=== PATIENT | male | born 1935 | race Caucasian/White ===

== ENCOUNTER → 2023-08-15 08:05 | Outpatient (REF) | payer MEDICARE, BC, SELFPAY | LOC: WOUND 08:05 | PROVIDERS: ATTENDING PHYSICIAN Surgery | DX: I87.312 Chronic venous hypertension (idiopathic) with ulcer of left lower extremity (principal); L97.822 Non-pressure chronic ulcer of other part of left lower leg with fat layer exposed; L97.222 Non-pressure chronic ulcer of left calf with fat layer exposed; L97.322 Non-pressure chronic ulcer of left ankle with fat layer exposed; L88 Pyoderma gangrenosum | CPT/HCPCS: 99214 ==

== ENCOUNTER 2023-10-20 21:34 | Inpatient (IN) | payer MEDICARE, BC, SELFPAY ==
[2023-10-20 16:33] VITALS: BP 146/61
--- NOTE | 2023-10-20 18:55 | ED.GENMED ---
History of Present Illness
General
Chief Complaint: Skin Problem
Time Seen by Provider: 10/20/23 18:32
History of Present Illness
History of Present Illness:
87-year-old male with history of bilateral lower extremity venous insufficiency presents to the emergency department for evaluation of left lower extremity pain and increased malodorous discharge over the past several days. He has in-home wound
care and was last seen today by his visiting nurse who recommended he come to the emergency department due to increased malodorous discharge. He typically has no pain in his legs but is noted pain when walking over the past week. Denies any fevers
or chills. Prior wound cultures have grown Pseudomonas as well as MSSA, was admitted to this hospital last year for acute on chronic wound infection and treated with ciprofloxacin
Past History
Past History
ED Past Medical History: HTN, Hypercholesterolemia, Other and Other
ED Past Surgical History: Other (Hemicolectomy)
Social History
Tobacco: Non-smoker
Alcohol: None
Drug: None
Personal:
Living: with family
Review of Systems
Review of Systems
Allergies reviewed?: Yes
All Other Systems: ROS reviewed and negative except as documented in HPI and ROS
Phy Exam
Physical Exam
Physical Exam:
GEN: Well appearing, NAD, WDWN
HEENT: Oral mucosa moist, no scleral icterus
Cardiac: Regular rate
Lung: No respiratory distress, no tachypnea
MSK: No gross deformity or injuries
Skin: Good color, no pallor or jaundice. Right lower extremity chronic ulcerated wounds with no discharge and no erythema. Numerous chronic ulcerations to the left lower extremity below the knee with copious malodorous discharge particularly the
medial aspect of the left lower extremity. Dorsalis pedis pulses are strong by Doppler bilaterally
Neuro: AO x3, moves all extremities freely
Psych: Calm, cooperative
Course
Orders/Labs/Results
Orders:
Orders
10/20/23 18:53
CR Leg Tibia/fibula Left 2 Vw Urgent
Comment:
Reason For Exam: chronic wound, acute infection
10/20/23 19:00
CRP [C-Reactive Protein] Urgent
Complete Blood Count/With Diff Urgent
Comprehensive Metabolic Panel Urgent
Wound Culture [Wound/Abscess/Other Culture] Urgent
MARBELLA Source: Leg
Specimen Description: Left
Date Specimen was Collected: 10/20/23
Time Specimen was Collected: 18:55
10/20/23 19:29
Ciprofloxacin 200 mg/[id number] [Cipro 200 mg] 100 ml IV NOW
10/20/23 20:23
Vancomycin [Vancocin] 2,000 mg 0.9% Sodium Chloride 500 ml [Nss] 500 ml IV NOW
10/20/23 22:00
VANCOMYCIN Pharmacy to Dose [VANCOCIN Pharmacy to Dose] 1 each Pharmacy To Prepare [Call Pharmacy To Prepare] 0 ml IV PER PROTOCOL
Abnormal Lab Results
10/20/23
19:00
WBC 11.2 H 10^3/uL
(4.8-10.8)
RBC 3.80 L 10^6/uL
(4.70-6.10)
Hgb 11.3 L g/dL
(13.0-18.0)
Hct 32.5 L %
(39.0-52.0)
Abs Immat Gran (auto) 0.1 H 10^3/uL
(0-0.05)
Absolute Neuts (auto) 8.5 H 10^3/uL
(1.4-6.5)
Absolute Monos (auto) 1.1 H 10^3/uL
(0.1-0.6)
Neutrophils % 75.9 H %
(42.2-75.2)
Lymphocytes % 11.8 L %
(20.5-51.1)
Monocytes % 9.7 H %
(1.7-9.3)
Sodium 129 L mmol/L
(135-145)
Chloride 96 L mmol/L
(98-107)
BUN 21 H mg/dl
(9-20)
Glucose 117 H mg/dl
(70-99)
C-Reactive Protein 82.40 H mg/L
(0.0-10.00)
Albumin 3.4 L g/dl
(3.5-5.0)
10/20/23 19:00
10/20/23 19:00
Vital Signs
Initial and Last Documented VS:
Initial Vital Signs
Temp Pulse Resp BP Pulse Ox
98 F 75 18 146/61 98
10/20/23 16:33 10/20/23 16:33 10/20/23 16:33 10/20/23 16:33 10/20/23 16:33
Last Documented Vital Signs
Temp Pulse Resp BP Pulse Ox
98 F 75 18 138/58 98
10/20/23 16:33 10/20/23 16:33 10/20/23 16:33 10/20/23 19:06 10/20/23 19:46
MDM/Problems Addressed
MDM/Problems Addressed:
87-year-old male presents with acute on chronic lower extremity ulcerated wounds. I am concerned for potential developing osteomyelitis given the acute onset of pain and malodorous discharge plus markedly elevated CRP; Tib/Fib XR my by read shows
no clear evidence of osteolysis, will cover with broad-spectrum IV antibiotics and admit to the hospitalist service for further management
*Critical Care Note
Total Time (30-74mins, 75-104mins- exclusive of procedures): Not Applicable
ED Attending Note
-
Portions of this chart may have been created with voice recognition software.� Occasional wrong word or��sound alike� substitutions may have occurred due to the inherent limitations of voice recognition software.
Discharge Plan
Departure
Patient Disposition: Admit
Date of Disposition: 10/20/23
Time of Disposition: 20:26
Presentation/result/management discussed w/ accepting MD/DO: Hospitalist
Discharge Problem:
Cellulitis of left leg, Chronic venous stasis dermatitis
Prescriptions:
No Action
mesalamine [Lialda] 1.2 GM tablet,delayed release (DR/EC)
1.2 g PO BID
aspirin 81 mg Tablet,Delayed Release (Dr/Ec)
81 mg PO HS
pentoxifylline 400 mg tablet extended release
400 mg PO TID
lutein 20 mg Tablet
20 mg PO DAILY Qty: 0
PreserVision AREDS-2 250-90-40-1 mg Capsule
2 tab PO NOON
carbidopa-levodopa 25-100 mg tablet
1 tab PO QID
Referrals:
Payam Forbes DO [Family Provider] -
Interventions
Interventions:
*Risk Screen - Suicide Last Done: 10/20/23 16:33
*General Assessment Last Done: 10/20/23 16:33
*Neglect/Abuse Screening Last Done: 10/20/23 16:33
*ED COVID-19 Vaccine History Last Done: 10/20/23 16:33
ED-Skin Assessment Last Done: 10/20/23 19:22
Discharge Date and Time
Print Language: MONGOLIAN
[2023-10-20 19:06] VITALS: BP 138/58
[2023-10-20 19:11] LABS: % Basophils 0.4 % (0-2); % Eosinophils 1.7 % (0-6); % Immature Granulocytes 0.5 % (0-0.5); % Lymphocytes 11.8 % (20.5-51.1); % Monocytes 9.7 % (1.7-9.3); % Neutrophils 75.9 % (42.2-75.2); Absolute Eosinophils 0.2 10^3/uL (0-0.7); Absolute Immature Granulocytes 0.1 10^3/uL (0-0.05); Absolute Lymphocytes 1.3 10^3/uL (1.2-3.4); Absolute Monocytes 1.1 10^3/uL (0.1-0.6); Absolute Neutrophils 8.5 10^3/uL (1.4-6.5); Hematocrit 32.5 % (39.0-52.0); Hemoglobin 11.3 g/dL (13.0-18.0); Mean Corp Hgb Conc. 34.8 g/dL (33.0-37.0); Mean Corpuscular Hgb 29.7 pg (27.0-31.0); Mean Corpuscular Volume 85.5 fL (80.0-94.0); Mean Platelet Volume 8.8 fL (7.4-10.4); Nucleated Red Blood Cells % 0 % (-); Platelet Count 349 10^3/uL (130-400); White Blood Cell Count 11.2 10^3/uL (4.8-10.8)
[2023-10-20 19:35] LABS: ALT (SGPT) < 10 U/L (0-50); AST (SGOT) 29 U/L (17-59); Albumin 3.4 g/dl (3.5-5.0); Alkaline Phosphatase 89 U/L (38-126); Blood Urea Nitrogen 21 mg/dl (9-20); Calcium 8.5 mg/dl (8.4-10.2); Carbon Dioxide 25 mmol/L (22-30); Estimated Creatinine Clearance 59 ml/min; Glucose 117 mg/dl (70-99); Total Bilirubin 0.6 mg/dl (0.2-1.3); Total Protein 6.8 g/dl (6.3-8.2); eGFR > 60.00
[2023-10-20] MEDS: CIPRO 200 MG 100 IV (19:35)
[2023-10-20 20:00] LABS: Chloride 96 mmol/L (98-107); Potassium 4.7 mmol/L (3.5-5.1); Sodium 129 mmol/L (135-145)
[2023-10-20] MEDS: VANCOCIN 540 MG IV (21:00)
--- NOTE | 2023-10-20 21:17 | HPS.HSE ---
Family Physician
-
Family Physician: Payam Forbes
Chief Complaint
-
LLE Pain / Wound
History of Present Illness
Patient is an 87y M with PMH significant for chronic venous stasis with chronic b/l LE wounds who presents to ED complaining of increased pain, malodor and greenish drainage from LLE for the past few days. Patient is seen by VN at home Monday /
Monday and goes to Wound Care at [facility] on Wednesdays. He was advised that his wound had malodor and green drainage on Monday and then again today. He was advised to present to the ED for evaluation. Patient complains of sense of throbbing /
aching in the LLE - mostly when standing / walking. He denies any systemic symptoms such as fevers / chills, N/V/D, etc.
Medical History
Past Medical History
Past Medical History: Reports Other
Additional Past Medical History:
Hypertension
ASCVD / PAD
Chronic Venous Stasis
Chronic LE Wounds
Parkinson's Disease
Ulcerative Colitis
Past Surgical History: Reports Other
Additional Past Surgical History:
Colon Resection
Left Femoral Stent
Social History
Tobacco: Former Smoker (Quit in 1984.)
Alcohol: Occasional
Family History
Family History: Not pertinent
Allergies / Home Medications
Allergies reflects when Allergies were last updated in [facility].
Home Medications with original date entered in [facility]
Allergy/Medication List:
Allergies
Allergy/AdvReac Type Severity Reaction Status Date / Time
Cephalosporins Allergy Rash Verified 10/20/23 16:40
levofloxacin [From Levaquin] Allergy Rash Verified 10/20/23 16:40
sulfamethoxazole Allergy Rash Verified 10/20/23 16:40
[From Bactrim]
trimethoprim [From Bactrim] Allergy Rash Verified 10/20/23 16:40
Home Medications
mesalamine 1.2 gram tablet,delayed release (Lialda) 1.2 g PO BID Gastrointestinal Issue 03/05/14
aspirin 81 mg tablet,delayed release 81 mg PO HS 11/30/22
lutein 20 mg tablet 20 mg PO DAILY Supplement ##0 11/30/22
pentoxifylline 400 mg tablet,extended release 400 mg PO TID circulation 11/30/22
vit C 250 mg-vit E 90 mg-zinc 40 mg-copper 1 [id number] capsule (PreserVision AREDS-2) 2 tab PO NOON Supplement 11/30/22
carbidopa 25 mg-levodopa 100 mg tablet 1 tab PO QID 10/20/23
Review of Systems
-
History Source: Patient
A 12 point ROS was completed and negative except as noted: Yes
Constitutional: Denies Fever or Chills
Respiratory: Denies Cough or Trouble Breathing
Cardiac: Denies Chest Pain or Palpitations
Abdomen/GI: Denies Abdominal Pain, Nausea, Vomiting or Diarrhea
: Denies Dysuria, Frequency or Flank Pain
Musculoskeletal: Reports Edema; Denies Joint Pain
Skin: Reports Itching and Other (Dry skin / LE wound(s))
Neurological: Denies Dizzy or Headache
Psych: Denies Depression or Anxiety
Physical Exam
Vital Signs
Vital Signs
Temp Pulse Resp BP Pulse Ox
98 F 75 18 138/58 98
10/20/23 16:33 10/20/23 16:33 10/20/23 16:33 10/20/23 19:06 10/20/23 19:46
Physical Exam
General: Other (87y M in no acute distress.)
HEENT: Moist mucous membranes and PERRLA
Respiratory: Clear; No Wheezes, Rales or Rhonchi
Cardiac: S1/S2 and Regular Rhythm; No Murmur
GI: Soft, Non Tender, Non Distended and Normal Bowel Sounds
Musculoskeletal: Other (Chronic stasis skin changes. LEs with new dressings in place here in the ED. Minimal surrounding erythema. Dry skin diffusely. No focal tenderness.)
Neuro: AO x 3
Laboratory Results
-
10/20/23 19:00
10/20/23 19:00
Laboratory Results
Total Bilirubin 0.6 mg/dl (0.2-1.3) 10/20/23 19:00
AST 29 U/L (17-59) 10/20/23 19:00
ALT < 10 U/L (0-50) 10/20/23 19:00
Alkaline Phosphatase 89 U/L (38-126) 10/20/23 19:00
Impression/Plan
-
A/P: Patient is an 87y M with PMH significant for PAD, chronic venous stasis and chronic LE wounds who presents to ED complaining of pain, swelling and change in wound discharge from the LLE.
Chronic LLE Wounds
Cellulitis LLE
Chronic Venous Stasis
- Admit for further evaluation and treatment.
- Continue IV Vanco pending culture data.
- Note no WBC seen on prelim Gram stain.
- Wound Care / local care.
- Follow for clinical improvement.
- X-ray done this evening without evidence for osteo. MRI done 11/2022 also without evidence of bony involvement.
- ID evaluation for additional recommendations.
ASCVD / PAD
- Stable. Hold pentoxifylline acutely. Received dose of Cipro in the ED.
- Continue ASA.
Parkinson's Disease
- Stable. Continue Sinemet dosing without changes.
Ulcerative Colitis
- Stable. No current / active symptoms.
- Continue mesalamine.
- s/p prior colectomy.
DVT Prophylaxis: Subcut Heparin
Code Status: Full
[2023-10-20 22:57] VITALS: BP 98/69
[2023-10-20 22:58] VITALS: BMI 24.6
--- NOTE | 2023-10-20 23:00 | PTCARENOTE ---
Pt received from ED at 2250. Patient AA&Ox4, receptive to room and call rosario. Will continue with current plan of care. Vanco running when pt came to floor. Pt came up with generalized rash on chest, abd, perineum, and thighs. Pt reported no itching.
Notified Ilsa GOMEZ, ordered Benadryl IV and decreased Vanco rate.
[2023-10-20] MEDS: BENADRYL 25 MG IV (23:40)
[2023-10-20] MEDS: SINEMET 25-100 1 TABLET PO (23:41)
[2023-10-20] MEDS: ASPIR LOW (ENTERIC COATED) 81 MG PO (23:41)
[2023-10-20] MEDS: NSS 1000 IV (23:47)
[2023-10-21 06:58] LABS: Hematocrit 27.5 % (39.0-52.0); Hemoglobin 9.7 g/dL (13.0-18.0); Mean Corp Hgb Conc. 35.3 g/dL (33.0-37.0); Mean Corpuscular Hgb 29.7 pg (27.0-31.0); Mean Corpuscular Volume 84.1 fL (80.0-94.0); Mean Platelet Volume 8.9 fL (7.4-10.4); Platelet Count 293 10^3/uL (130-400); Red Blood Cell Count 3.27 10^6/uL (4.70-6.10); Red Cell Dist. Width 11.9 % (11.5-14.5); White Blood Cell Count 8.7 10^3/uL (4.8-10.8)
[2023-10-21 07:00] VITALS: BP 113/48
[2023-10-21 07:16] LABS: Blood Urea Nitrogen 16 mg/dl (9-20); Calcium 7.9 mg/dl (8.4-10.2); Carbon Dioxide 23 mmol/L (22-30); Chloride 100 mmol/L (98-107); Estimated Creatinine Clearance 52 ml/min; Glucose 96 mg/dl (70-99); Potassium 4.5 mmol/L (3.5-5.1); Sodium 128 mmol/L (135-145); eGFR > 60.00
--- NOTE | 2023-10-21 07:53 | PHA.VAN.IN ---
Assessment
- Assessment
Renal Function: Appears similar to baseline
Renal Function may be Overestimated due to: age
- Previous Dosing Experience
Previous Regimen: prn by levels
Date of Regimen: 11/2022
Patient's SCR is: Decreased compared to previous dosing experience
Patient's weight is: Similar to previous dosing experience
AUC Dosing Plan
- Dosing Variables
Dosing Weight (kg): 79.83
Dosing CrCl (ml/min): 52
Vd coefficient (L/kg): 0.7
- Empiric Dosing
Initial / Loading Dose: 2000mg
Maintenance Regimen: 1250mg q24h
Estimated AUC (mcg*h/mL): 487
Estimated Peak (mcg*h/mL): 32.9
Estimated Trough (mcg/ml): 11.3
Estimated Half Life (H): 14.6
- Monitoring
No levels ordered at this time: consider at steady state
Pharmacokinetics Vancomycin I
- -
Patient Age: 87
Patient Sex: Male
Vancomycin Day #: 1
Indication: Skin And Soft Tissue
Requesting Provider: Dr. Gunter
Pertinent Antimicrobial Allergies:
cephalosporins=rash
levofloxacin=rash
bactrim=rash
Height / Weight:
Height 5 ft 11 in
Actual Weight 79.832 kg
IBW in k.3
- Vital Signs / Lab Results
Temp Pulse Resp BP Pulse Ox
98.0 F 67 18 113/48 96
10/21/23 07:00 10/21/23 07:00 10/21/23 07:00 10/21/23 07:00 10/21/23 07:00
Lab Results - Hematology
10/20/23 10/21/23
19:00 06:08
WBC 11.2 H 8.7
Lab Results - Chemistry
08/09/24 08/10/24
19:00 06:08
BUN 21 H 16
Creatinine 1.0 1.1
Estimated Creat Clear 59 52
Albumin 3.4 L
Microbiology Results
10/20/23 19:00 Gram Stain - Preliminary
Leg - Left
[2023-10-21] MEDS: SINEMET 25-100 1 TABLET PO ×4 (08:50→22:02)
[2023-10-21] MEDS: HEPARIN 5000 UNITS SC ×2 (08:50→22:02)
[2023-10-21] MEDS: HYDROPHOR 1 APPLIC TOPICAL (08:51)
--- NOTE | 2023-10-21 11:32 | W.PN.HOSP.TC ---
Today's Communication/Plan
-
add on Cipro
ID consult
stop IVF, fluid restrict, urine studies
Assessment / Plan
Assessment / Plan
A/P: Patient is an 87y M with PMH significant for PAD, chronic venous stasis and chronic LE wounds who presents to ED complaining of pain, swelling and change in wound discharge from the LLE.
Chronic LLE Wounds
Cellulitis LLE
Chronic Venous Stasis
- X-ray done without evidence for osteo
- hx pseudomonas and MSSA growth in past
- IV Vanc, resume Cipro (tolerated last admission)
- ID consulted
- wound care
Hyponatremia
- stop fluids
- fluid restriction
- F/U urine studies
ASCVD / PAD
- Stable.
- hold pentoxifylline while receiving Cipro
- Continue ASA.
Parkinson's Disease
- Stable. Continue Sinemet dosing without changes.
Ulcerative Colitis
- Stable. No current / active symptoms.
- Continue mesalamine.
- s/p prior colectomy.
DVT Prophylaxis: Subcut Heparin
Code Status: Full
Anticipated Discharge: 24 - 48 hours
Subjective/Interval History
-
Date of Service: October 21, 2023
no fevers or chills
no pain
increased drainage
Objective Data
-
Labs:
Laboratory Results
10/21/23
06:08
WBC 8.7
Hgb 9.7 L
Hct 27.5 L
Plt Count 293
Sodium 128 L
Potassium 4.5
Chloride 100
Carbon Dioxide 23
BUN 16
Creatinine 1.1
Glucose 96
Calcium 7.9 L
Vital Signs:
Vital Signs
Temp Pulse Resp BP Pulse Ox
98.0 F 67 18 113/48 96
10/21/23 07:00 10/21/23 07:00 10/21/23 07:00 10/21/23 07:00 10/21/23 07:00
I&O
10/20/23 10/21/23 10/22/23
06:59 06:59 06:59
Intake Total 1020 / 1020
Output Total 275 / 275
Balance 745 / 745
Review of Systems
-
History Source: Patient
All other systems: Reviewed and negative
Physical Exam
-
General: No Apparent Distress
HEENT: Normocephalic and Atraumatic
Respiratory: Negative Wheezes or Rales
Cardiac: Regular Rhythm and S1/S2
GI: Soft
Genito-urinary: No Costovertebral Tender
Musculoskeletal: Other (wounds wrapped with evidence of drainage/ chronic venous stasis discoloration changes)
Neuro: AO x 3
Hematologic / Lymphatic: No Lymphadenopathy
Psych: Calm
Data Reviewed
-
Diagnostic Radiology: Report Reviewed by me
Labs: Labs Reviewed by me
[2023-10-21] MEDS: CIPRO 500 MG PO (12:29)
--- NOTE | 2023-10-21 12:59 | CON.ID ---
Consultation
-
Date/Time Consultation Requested: October 20, 2023 2236
Date/Time Consultation Performed: October 21, 2023 1300
Requesting Provider: Dr. Jani Gold
Performing Provider: Dr. Sandy Leo
Reason for Consultation: Cellulitis
Chief Complaint / Past History
Chief Complaint
Left leg drainage and redness
History of Present Illness
87-year-old male with history of PAD, chronic bilateral lower extremity venous stasis wounds for which he goes to [facility] wound care center once a week with home wound nurse visits twice a week. Patient complaining of left leg worsening pain
this week. Home nurse noted significant greenish drainage with malodor from the left leg wounds. He was therefore sent to the ER yesterday. White count was 12. He received IV vancomycin and Cipro. He then developed nonpruritic rash and
therefore the vancomycin is held. No fevers or chills. He is compliant with compression therapy at home.
Past History
Additional Past Medical History:
Parkinson's
HTN
Dyslipidemia
PAD s/p left femoral stent
CKD
Ulcerative colitis s/p hemicolectomy
Venous stasis and insufficiency
Allergy History:
Cephalosporins Allergy (Verified 10/20/23 16:40)
Rash
levofloxacin [From Levaquin] Allergy (Verified 10/20/23 16:40)
Rash
sulfamethoxazole [From Bactrim] Allergy (Verified 10/20/23 16:40)
Rash
trimethoprim [From Bactrim] Allergy (Verified 10/20/23 16:40)
Rash
Medications Reviewed: Yes
Current Antibiotics:
Vancomycin (d2)
Cipro (d2)
Social History
Tobacco: Former Smoker
Alcohol: None
Drug: None
Personal:
Family History
Family History: Not Pertinent
Review of Systems
Review of Systems
General: Negative Fever, Chills or Change in Appetite
HEENT: Negative Sinus Problems, Headache or Pharyngitis
Cardiovascular: Negative Chest Pain or Dyspnea
Respiratory: Negative Dyspnea or Cough
Gasteroenterology: Other (no diarrhea); Negative Nausea or Vomiting
Genital / Urological: Negative Dysuria or Flank Pain
Skin / Hair / Nails: Rash
Neurological: Negative Headache or Dizziness
All systems: All other systems were reviewed and were negative
Vital Signs
Temp Pulse Resp BP Pulse Ox
98.0 F 67 18 113/48 96
10/21/23 07:00 10/21/23 07:00 10/21/23 07:00 10/21/23 07:00 10/21/23 07:00
Physical Exam
Physical Exam
Constitutional: No Acute Distress and Comfortable
Eyes: No Conjunctival Hemorrhage and Sclera Anicteric
Cardiovascular: Regular Rate and S1/S2
Pulmonary: Clear
Gastrointestinal: Soft, Non Tender, Non Distended and Normal Bowel Sounds
Extremities: Edema (BLE 1+)
Skin: Rash (scattered maculopapular pink lesions bilateral upper thighs to lower abdomen)
Wound: Other (LLE distal leg + venous stasis ulcers, + malodor, + yellow-green exudate, +erythema)
Lab / Diagnostic Study Results
10/21/23 06:08
10/21/23 06:08
Abs Immat Gran (auto) 0.1 10^3/uL (0-0.05) H 10/20/23 19:00
Absolute Neuts (auto) 8.5 10^3/uL (1.4-6.5) H 10/20/23 19:00
Absolute Lymphs (auto) 1.3 10^3/uL (1.2-3.4) 10/20/23 19:00
Absolute Monos (auto) 1.1 10^3/uL (0.1-0.6) H 10/20/23 19:00
Absolute Basos (auto) 0.0 10^3/uL (0-0.2) 10/20/23 19:00
Immature Gran % 0.5 % (0-0.5) 10/20/23 19:00
Neutrophils % 75.9 % (42.2-75.2) H 10/20/23 19:00
Lymphocytes % 11.8 % (20.5-51.1) L 10/20/23 19:00
Monocytes % 9.7 % (1.7-9.3) H 10/20/23 19:00
Eosinophils % 1.7 % (0-6) 10/20/23 19:00
Basophils % 0.4 % (0-2) 10/20/23 19:00
C-Reactive Protein 82.40 mg/L (0.0-10.00) H 10/20/23 19:00
Microbiology Results
Micro:
10/20/23 19:00 Wound Culture - Preliminary
Leg - Left No growth
Gram Stain - Preliminary
10/20/23 23:38 MRSA Screen - Pending
Nose
Assessment / Plan
# LLE cellulitis, venous stasis wound infection
# Leukocytosis resolved
# Allergy to sulfa, cephalosporin, levofloxacin (tolerated cipro in the past).
- Likely polymicrobial organisms including Pseudomonas
-DC Vanco/cipro.
-Start Zosyn.
- Wound care and compression.
# Rash - from vancomycin
- recommend slower infusion in the future.
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
Parkinson's
HTN
Dyslipidemia
PAD s/p left femoral stent
CKD
Ulcerative colitis s/p hemicolectomy
Chronic BLE venous stasis wounds
[2023-10-21 14:02] VITALS: BP 123/51; BP 134/47; PULSE 69; O2SAT 98
[2023-10-21 14:08] VITALS: BP 134/47; PULSE 64
[2023-10-21] MEDS: ZOSYN 100 IV (17:53)
[2023-10-21 20:23] LABS: Osmolality Urine 345 mOsm/kg (300-900)
[2023-10-21 20:36] LABS: Urine Sodium 26 mmol/L (30-90)
[2023-10-21] MEDS: ASPIR LOW (ENTERIC COATED) 81 MG PO (22:02)
[2023-10-21 23:16] VITALS: BP 124/46
[2023-10-22] MEDS: FLUSH (NSS) 2 FLUSH IV ×2 (00:24→05:24)
[2023-10-22] MEDS: ZOSYN 100 IV ×4 (00:24→17:23)
[2023-10-22 07:15] VITALS: BP 132/45
[2023-10-22] MEDS: HEPARIN 5000 UNITS SC ×2 (07:53→22:23)
[2023-10-22] MEDS: HYDROPHOR 1 APPLIC TOPICAL (07:53)
[2023-10-22] MEDS: SINEMET 25-100 1 TABLET PO ×4 (07:53→22:25)
[2023-10-22 08:00] VITALS: BMI 24.7
[2023-10-22 08:12] LABS: Hematocrit 31.3 % (39.0-52.0); Hemoglobin 10.9 g/dL (13.0-18.0); Mean Corp Hgb Conc. 34.8 g/dL (33.0-37.0); Mean Corpuscular Hgb 30.7 pg (27.0-31.0); Mean Corpuscular Volume 88.2 fL (80.0-94.0); Mean Platelet Volume 8.7 fL (7.4-10.4); Platelet Count 280 10^3/uL (130-400); Red Blood Cell Count 3.55 10^6/uL (4.70-6.10); White Blood Cell Count 6.6 10^3/uL (4.8-10.8)
[2023-10-22 08:49] LABS: Blood Urea Nitrogen 15 mg/dl (9-20); Calcium 8.5 mg/dl (8.4-10.2); Carbon Dioxide 28 mmol/L (22-30); Chloride 101 mmol/L (98-107); Estimated Creatinine Clearance 48 ml/min; Glucose 104 mg/dl (70-99); Potassium 4.7 mmol/L (3.5-5.1); Sodium 133 mmol/L (135-145); eGFR 59.26
--- NOTE | 2023-10-22 11:35 | W.PN.HOSP.TC ---
Today's Communication/Plan
-
appreciate ID
IV Zosyn
Assessment / Plan
Assessment / Plan
A/P: Patient is an 87y M with PMH significant for PAD, chronic venous stasis and chronic LE wounds who presents to ED complaining of pain, swelling and change in wound discharge from the LLE admitted for cellulitis; hx growth Pseudomonas in
past. Multiple drug allergies.
Chronic LLE Wounds
Cellulitis LLE
Chronic Venous Stasis
- X-ray done without evidence for osteo
- hx pseudomonas and MSSA growth in past
- appreciate ID
- continue IV Zosyn (day 2)
- patient was given IV Vanc and Cipro in ER and developed rash on back, more likely 2/2 Vancomycin; has tolerated Cipro last admission
- wound care consult
Hyponatremia
- stop fluids
- fluid restriction
- Na improved to 133 today
ASCVD / PAD
- Stable.
- hold pentoxifylline s/p Cipro
- Continue ASA.
Parkinson's Disease
- Stable. Continue Sinemet dosing without changes.
-PT/OT
Ulcerative Colitis
- Stable. No current / active symptoms.
- Continue mesalamine.
- s/p prior colectomy.
DVT Prophylaxis: Subcut Heparin
Code Status: Full
Anticipated Discharge: 24 - 48 hours
Subjective/Interval History
-
Date of Service: October 22, 2023
feeling well
was up with PT yesterday
no fevers/chills
Objective Data
-
Labs:
Laboratory Results
10/22/23
07:50
WBC 6.6
Hgb 10.9 L
Hct 31.3 L
Plt Count 280
Sodium 133 L
Potassium 4.7
Chloride 101
Carbon Dioxide 28
BUN 15
Creatinine 1.2
Glucose 104 H
Calcium 8.5
Vital Signs:
Vital Signs
Temp Pulse Resp BP Pulse Ox
97.5 F 59 18 132/45 94
10/22/23 07:15 10/22/23 07:15 10/22/23 07:15 10/22/23 07:15 10/22/23 07:15
I&O
10/21/23 10/22/23 10/23/23
06:59 06:59 06:59
Intake Total 1020 / 1020 640 / 640
Output Total 275 / 275 400 / 400
Balance 745 / 745 240 / 240
Review of Systems
-
History Source: Patient
All other systems: Reviewed and negative
Physical Exam
-
General: No Apparent Distress
HEENT: Normocephalic and Atraumatic
Respiratory: Negative Wheezes or Rales
Cardiac: Regular Rhythm and S1/S2
GI: Soft
Genito-urinary: No Costovertebral Tender
Musculoskeletal: Other (wounds wrapped with evidence of drainage/ chronic venous stasis discoloration changes)
Neuro: AO x 3
Hematologic / Lymphatic: No Lymphadenopathy
Psych: Calm
Data Reviewed
-
Diagnostic Radiology: Report Reviewed by me
Labs: Labs Reviewed by me
--- NOTE | 2023-10-22 11:50 | W.PN.ID1 ---
Date of Service
Date of Service: October 22, 2023
Today's Communication
Continue Zosyn
Assessment / Plan
# LLE cellulitis, venous stasis wound infection, copious drainage
# Leukocytosis resolved
# Allergy to sulfa, cephalosporin, levofloxacin (tolerated cipro in the past).
- Likely polymicrobial organisms including Pseudomonas
- Continue Zosyn.
- Placed wound care instructions pending Wound RN evaluation tomorrow.
# Rash - from vancomycin
- recommend slower infusion in the future.
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
Parkinson's
HTN
Dyslipidemia
PAD s/p left femoral stent
CKD
Ulcerative colitis s/p hemicolectomy
Chronic BLE venous stasis wounds
Chief Complaint
-: Cellulitis and Other (Wound drainage)
Subjective / Review of Systems
LLE pain better
Vital Signs / Physical Exam
Vital Signs
Vital Signs
Temp Pulse Resp BP Pulse Ox
97.5 F 59 18 132/45 94
10/22/23 07:15 10/22/23 07:15 10/22/23 07:15 10/22/23 07:15 10/22/23 07:15
Physical Exam
Constitutional: No Acute Distress
Cardiovascular: Regular Rate and S1/S2
Pulmonary: Clear
Wound: Other (LLE: distal leg with extensive venous stasis wounds, copious yellow-greenish drainage, decreased malodor; RLE dressing with yellow strike-through on medial side of gauze)
Objective Data
Lab Data
Lab Results
10/22/23 07:50
10/22/23 07:50
Estimated Creat Clear 48 ml/min 10/22/23 07:50
Total Bilirubin 0.6 mg/dl (0.2-1.3) 10/20/23 19:00
AST 29 U/L (17-59) 10/20/23 19:00
ALT < 10 U/L (0-50) 10/20/23 19:00
Alkaline Phosphatase 89 U/L (38-126) 10/20/23 19:00
C-Reactive Protein 82.40 mg/L (0.0-10.00) H 10/20/23 19:00
Most recent labs reviewed.
Micro Results:
10/20/23 19:00 Wound Culture - Preliminary
Leg - Left No growth
Gram Stain - Preliminary
10/20/23 23:38 MRSA Screen - Final
Nose No Methicillin Resistant Staphylococcus aureus isolated.
[2023-10-22 15:05] VITALS: BP 123/44
[2023-10-22] MEDS: DAKIN'S SOLUTION 0.125% 1/4 STRENGTH 1 ML TOPICAL (16:36)
[2023-10-22] MEDS: DAKIN'S SOLUTION 0.125% 1/4 STRENGTH 473 ML TOPICAL (22:23)
[2023-10-22] MEDS: ASPIR LOW (ENTERIC COATED) 81 MG PO (22:25)
[2023-10-22 23:20] VITALS: BP 121/47
[2023-10-23] MEDS: ZOSYN 100 IV ×4 (00:14→17:33)
[2023-10-23 06:22] VITALS: BMI 24.6
[2023-10-23 07:37] VITALS: BP 129/56
[2023-10-23] MEDS: SINEMET 25-100 1 TABLET PO ×4 (08:22→21:01)
[2023-10-23] MEDS: HEPARIN 5000 UNITS SC ×2 (08:22→21:00)
[2023-10-23] MEDS: DAKIN'S SOLUTION 0.125% 1/4 STRENGTH 473 ML TOPICAL ×2 (08:23→20:59)
[2023-10-23] MEDS: HYDROPHOR 1 APPLIC TOPICAL (08:24)
--- NOTE | 2023-10-23 08:42 | VNURNOTE ---
Chart reviewed. Patient is current with VN nurses. Will continue to monitor hospital course.
--- NOTE | 2023-10-23 10:45 | CM ---
manager of financial reporting reviewed patient's chart and met with patient and patient lives with her spouse in a 2 story home with 3 steps to enter, patient is independent with adl's and uses a cane with ambulation, patient has a walker. Patient has Parkinson's
but reports that he is able to manage in home setting with his spouse. Patient is current with [facility], and plan will be to return to home with [facility] when stable.
PCP: Dr Forbes
Pharmacy: [facility].
--- NOTE | 2023-10-23 13:24 | W.PN.ID1 ---
Date of Service
Date of Service: October 23, 2023
Today's Communication
Tomorrow can transition to Augmentin 875mg po bid and cipro 750mg po bid through 10/29.
Assessment / Plan
# LLE cellulitis, venous stasis wound infection, copious drainage
# Leukocytosis resolved
# Allergy to sulfa, cephalosporin, levofloxacin (tolerated cipro in the past).
-LLE infection improved today
- Likely polymicrobial organisms including Pseudomonas
- Appreciate Wound Care recs.
- Continue Zosyn (d3) today.
- Tomorrow can transition to Augmentin 875mg po bid and cipro 750mg po bid through 10/29.
Check QTc.
# Rash resolved - from vancomycin
- recommend slower infusion in the future.
# Conditions BOTTLE CASER
Parkinson's
HTN
Dyslipidemia
PAD s/p left femoral stent
CKD
Ulcerative colitis s/p hemicolectomy
Chronic BLE venous stasis wounds
Chief Complaint
-: Cellulitis and Other (Wound drainage)
Subjective / Review of Systems
Left leg feeling better.
Vital Signs / Physical Exam
Vital Signs
Vital Signs
Temp Pulse Resp BP Pulse Ox
97.6 F 57 21 129/56 95
10/23/23 07:37 10/23/23 07:37 10/23/23 07:37 10/23/23 07:37 10/23/23 07:37
Physical Exam
Constitutional: No Acute Distress
Gastrointestinal: Soft, Non Tender and Non Distended
Wound: Other (Examined with Wound Nurse. Distal LLE extensive venous stasis wounds circumferential, drainage now yellow and decreased, no longer malodorous. Distal RLE venous ulcers mostly dry,, no erythema. )
Objective Data
Lab Data
Lab Results
10/22/23 07:50
08/11/24 07:50
Estimated Creat Clear 48 ml/min 10/22/23 07:50
Total Bilirubin 0.6 mg/dl (0.2-1.3) 10/20/23 19:00
AST 29 U/L (17-59) 10/20/23 19:00
ALT < 10 U/L (0-50) 10/20/23 19:00
Alkaline Phosphatase 89 U/L (38-126) 10/20/23 19:00
C-Reactive Protein 82.40 mg/L (0.0-10.00) H 10/20/23 19:00
Most recent labs reviewed.
Micro Results:
10/20/23 19:00 Wound Culture - Final
Leg - Left No growth
Gram Stain - Final
10/20/23 23:38 MRSA Screen - Final
Nose No Methicillin Resistant Staphylococcus aureus isolated.
--- NOTE | 2023-10-23 13:29 | WOUNDNOTE ---
R LEG/ANKLE LATERAL
--- NOTE | 2023-10-23 13:30 | WOUNDNOTE ---
R MEDIAL LOWER ANKLE
--- NOTE | 2023-10-23 13:31 | WOUNDNOTE ---
L BUTTOCK AND LOWER BACK
--- NOTE | 2023-10-23 13:34 | WOUNDNOTE ---
WON RN note: Patient admitted with cellulitis of legs.
See H&P for complete history. Patient lives alternately here and [place]. He is followed by [facility].
PMH: HTN, PAD, L femoral stent 2015 in [place], CKD, ulcerative colitis, LLE venous ablation in [place], chronic LLE ulcers x 4 years, more recent RLE ulcer, venous insufficiency, former smoker.
Wound Location and type/assessment: Patient known to service for same leg venous ulcers, 12/01/22. Assessed patient along with Dr. Leo who already ordered mineral oil for dry skin, Dakin's to wounds, dry dressings and saul wraps both legs knee high.
L>R regarding open venous leg ulcers, large amt of serosanguineous drainage. Skin surrounding wounds very dry and scaly, heels intact. Leg with less odor and redness improving per Dr. Leo. L leg wound culture showed no growth. Resolving rash on
back, posterior buttocks and thighs. Buttocks are blanchable red, small bryce like skin on R buttock, suspect abrasion. Patient using urinal but pad underneath saturated with urine. Patient confirmed he has been going to [facility] when
here and a wound center in [place]. Patient plans to head back to skilled nursing community in [place] in January. Patient states he heals better when he is in [place], reviewed past wound care and compression that was used. Nurse Khushbu assisted with care.
Appetite: good.
Pressure redistribution devices in place: [employer] Accumax. Patient can turn self in bed.
Plan: LE dressings changed with Dakin's moist gauze, abd pad and kerlix, saul wraps knee high. Heels off bed with pillow. Pad changed under patient and nurse applied barrier cream to bottom. Repositioned patient onto R semi side lying position.
Ahmet in agreement with wound care and twice daily changes. Discussed with EMRE Ríos, supplies at bedside. Care plan to be updated and will follow as needed.
Note to case management requested for discharge: VN if patient wants.
Patient to follow up with his [facility] of choice.
--- NOTE | 2023-10-23 14:13 | W.PN.HOSP.TC ---
Today's Communication/Plan
-
cont iv abx
wound care
anticipate dc tomorrow on oral regimen
Assessment / Plan
Assessment / Plan
A/P: Patient is an 87y M with PMH significant for PAD, chronic venous stasis and chronic LE wounds who presents to ED complaining of pain, swelling and change in wound discharge from the LLE admitted for cellulitis; hx growth Pseudomonas in
past. Multiple drug allergies.
Chronic LLE Wounds
Cellulitis LLE
Chronic Venous Stasis
- X-ray done without evidence for osteo
- hx pseudomonas and MSSA growth in past
- appreciate ID
- continue IV Zosyn (day 3)
- patient was given IV Vanc and Cipro in ER and developed rash on back, more likely 2/2 Vancomycin; has tolerated Cipro last admission
- wound care consulted
Hyponatremia
- stop fluids
- fluid restriction
- Na improved to 133 today
ASCVD / PAD
- Stable.
- hold pentoxifylline s/p Cipro
- Continue ASA.
Parkinson's Disease
- Stable. Continue Sinemet dosing without changes.
-PT/OT
Ulcerative Colitis
- Stable. No current / active symptoms.
- Continue mesalamine.
- s/p prior colectomy.
DVT Prophylaxis: Subcut Heparin
Code Status: Full
Anticipated Discharge: Within 24 hours
Subjective/Interval History
-
Date of Service: October 23, 2023
no acute events
Objective Data
-
Vital Signs:
Vital Signs
Temp Pulse Resp BP Pulse Ox
97.6 F 57 21 129/56 95
10/23/23 07:37 10/23/23 07:37 10/23/23 07:37 10/23/23 07:37 10/23/23 07:37
I&O
10/22/23 10/23/23 10/24/23
06:59 06:59 06:59
Intake Total 640 / 640 1560 / 1560
Output Total 400 / 400 1100 / 1100
Balance 240 / 240 460 / 460
Review of Systems
-
History Source: Patient
All other systems: Not reviewed unless documented
Physical Exam
-
General: No Apparent Distress
HEENT: Normocephalic and Atraumatic
Respiratory: Negative Wheezes or Rales
Cardiac: Regular Rhythm and S1/S2
GI: Soft
Genito-urinary: No Costovertebral Tender
Musculoskeletal: Other (wounds wrapped with evidence of drainage/ chronic venous stasis discoloration changes)
Neuro: AO x 3
Hematologic / Lymphatic: No Lymphadenopathy
Psych: Calm
Data Reviewed
-
Diagnostic Radiology: Report Reviewed by me
Labs: Labs Reviewed by me
[2023-10-23 15:51] VITALS: BP 120/52
--- NOTE | 2023-10-23 16:18 | PN.CDI ---
CDI
- -
CDI:
Physician Documentation Request
Admit Date: 10/20/23 21:34
Dear Doctor Raz,
Clinical Indicators:
Patient admitted with LLE cellulitis.
10/19 External Medical Summary includes diagnosis of venous insufficiency in both lower extremities & PVD
10/20 ID consult, PMH includes Venous stasis and insufficiency
10/22 PN, 'Cellulitis LLE Chronic Venous Stasis'
Please clarify the likely relationship between these conditions:
Yes, cellulitis is related to/associated with/due to chronic venous insufficiency.
No, cellulitis is not related to/associated with/due to chronic venous insufficiency but it is due to ___. (Please specify)
Unable to determine
Use of terms such as suspected, likely, concern for, or probable (associated with a specific diagnosis that is being evaluated, monitored, or treated as if it exists) are acceptable and can be coded in the inpatient setting, when documented at the
time of discharge.
Thank you,
Alecia Mares RN BSN
CDI Specialist
available via tiger text
Please use your independent medical judgment in providing your response.
[2023-10-23] MEDS: ASPIR LOW (ENTERIC COATED) 81 MG PO (21:02)
[2023-10-23 23:40] VITALS: BP 156/53
[2023-10-24] MEDS: ZOSYN 100 IV ×3 (00:07→12:10)
[2023-10-24 07:40] LABS: Hematocrit 31.4 % (39.0-52.0); Hemoglobin 10.8 g/dL (13.0-18.0); Mean Corp Hgb Conc. 34.4 g/dL (33.0-37.0); Mean Corpuscular Hgb 30.3 pg (27.0-31.0); Mean Platelet Volume 8.9 fL (7.4-10.4); Platelet Count 280 10^3/uL (130-400); Red Blood Cell Count 3.57 10^6/uL (4.70-6.10); Red Cell Dist. Width 12.1 % (11.5-14.5)
[2023-10-24 07:57] VITALS: BP 143/52
[2023-10-24 08:06] LABS: ALT (SGPT) < 10 U/L (0-50); AST (SGOT) 14 U/L (17-59); Albumin 2.8 g/dl (3.5-5.0); Alkaline Phosphatase 84 U/L (38-126); Blood Urea Nitrogen 12 mg/dl (9-20); Calcium 8.1 mg/dl (8.4-10.2); Carbon Dioxide 25 mmol/L (22-30); Chloride 103 mmol/L (98-107); Estimated Creatinine Clearance 52 ml/min; Glucose 88 mg/dl (70-99); Sodium 133 mmol/L (135-145); Total Bilirubin 0.3 mg/dl (0.2-1.3); Total Protein 5.8 g/dl (6.3-8.2); eGFR > 60.00
[2023-10-24] MEDS: DAKIN'S SOLUTION 0.125% 1/4 STRENGTH TOPICAL (09:53)
[2023-10-24] MEDS: SINEMET 25-100 1 TABLET PO ×2 (09:53→14:50)
[2023-10-24] MEDS: HEPARIN 5000 UNITS SC (09:54)
[2023-10-24] MEDS: HYDROPHOR 1 APPLIC TOPICAL (09:56)
[2023-10-24] MEDS: FLUSH (NSS) 1 FLUSH IV (12:10)
--- NOTE | 2023-10-24 12:21 | CM ---
telemarketing manager reviewed patient's chart and spoke with patient's spouse, daughter and son with patient's permission this morning. Per physician plan is to home today, with [facility] and [facility] liaison has contacted
patient's spouse with update and plan for home care.
Plan; Home with [facility], spouse to transport patent today between 3-4pm bead picker.
--- NOTE | 2023-10-24 12:33 | VNURNOTE ---
Called patient's spouse, explained resumption of care to [facility]. Spouse agreeable and understands [facility] cannot come out daily for wound care. She stated patient was going to wound care center and doing wound care intermittently himself prior to
admission. TUBE DRAW HELPER add on eval for [facility].
--- NOTE | 2023-10-24 13:14 | W.PN.HOSP.TC ---
Addendum entered and electronically signed by Wiley Crandall MD 10/27/23 16:59:
Yes, cellulitis is related to/associated with/due to chronic venous insufficiency.
Addendum entered and electronically signed by Wiley Crandall MD 10/25/23 17:01:
[id number]
Original Note:
Today's Communication/Plan
-
-transition to Augmentin 875mg po bid and cipro 750mg po bid through 10/29.
-hold pentoxifylline on Cipro - resume once completed cipro and cleared by pcp
-BMP in 3-5 days
Assessment / Plan
Assessment / Plan
A/P: Patient is an 87y M with PMH significant for PAD, chronic venous stasis and chronic LE wounds who presents to ED complaining of pain, swelling and change in wound discharge from the LLE admitted for cellulitis; hx growth Pseudomonas in
past. Multiple drug allergies.
Chronic LLE Wounds
Cellulitis LLE
Chronic Venous Stasis
- X-ray done without evidence for osteo
- hx pseudomonas and MSSA growth in past
- appreciate ID
- continue IV Zosyn (day 4): transition to Augmentin 875mg po bid and cipro 750mg po bid through 10/29.
- patient was given IV Vanc and Cipro in ER and developed rash on back, more likely 2/2 Vancomycin; has tolerated Cipro last admission
- wound care consulted
Hyponatremia
- stop fluids
- fluid restriction
- Na improved to 133 today
-F/u bmp in 5 days with pcp
ASCVD / PAD
- Stable.
- hold pentoxifylline on Cipro - resume once completed cipro and cleared by pcp
- Continue ASA.
Parkinson's Disease
- Stable. Continue Sinemet dosing without changes.
-PT/OT
Ulcerative Colitis
- Stable. No current / active symptoms.
- Continue mesalamine.
- s/p prior colectomy.
DVT Prophylaxis: Subcut Heparin
Code Status: Full
More than 30 minutes spent in discharge including
Final examination of the patient
Summarizing hospital stay
Instructions for continuing care to all relevant caregivers
Preparation of discharge records, prescriptions, and referral forms
Total time spent (35 in minutes):
Anticipated Discharge: Today
Subjective/Interval History
-
Date of Service: October 24, 2023
erythema improved
Objective Data
-
Labs:
Laboratory Results
10/24/23 10/24/23
06:28 06:29
WBC 8.0
Hgb 10.8 L
Hct 31.4 L
Plt Count 280
Sodium 133 L
Potassium 4.0
Chloride 103
Carbon Dioxide 25
BUN 12
Creatinine 1.1
Glucose 88
Calcium 8.1 L
Total Bilirubin 0.3
AST 14 L
ALT < 10
Alkaline Phosphatase 84
Vital Signs:
Vital Signs
Temp Pulse Resp BP Pulse Ox
97.6 F 58 18 143/52 96
10/24/23 07:57 10/24/23 07:57 10/24/23 07:57 10/24/23 07:57 10/24/23 07:57
I&O
10/23/23 10/24/23 10/25/23
06:59 06:59 06:59
Intake Total 1560 / 1560 1989 / 1989
Output Total 1100 / 1100 505 / 505
Balance 460 / 460 1485 / 1485
Review of Systems
-
History Source: Patient
All other systems: Not reviewed unless documented
Physical Exam
-
General: No Apparent Distress
HEENT: Normocephalic and Atraumatic
Respiratory: Negative Wheezes or Rales
Cardiac: Regular Rhythm and S1/S2
GI: Soft
Genito-urinary: No Costovertebral Tender
Musculoskeletal: Other (wounds wrapped with evidence of drainage/ chronic venous stasis discoloration changes)
Neuro: AO x 3
Hematologic / Lymphatic: No Lymphadenopathy
Psych: Calm
Data Reviewed
-
Diagnostic Radiology: Report Reviewed by me
Labs: Labs Reviewed by me
--- NOTE | 2023-10-24 13:29 | W.DS.TRANS ---
DC Summary - Body Care Manager
-
Discharge Instructions:
Discharge Diagnosis/Procedures
Chronic LLE Wounds
Cellulitis LLE
Chronic Venous Stasis
Diet Low Cholesterol,Low Fat,Restrict fluids to 48 oz
Activity As tolerated
Bathing Restrictions as recommended by wound care
Blood Work bmp in 5-7 days with pcp
Instructions:
Stand-Alone Forms:
Changes to Home Medications: Yes
Discharge Medications:
DC Medications w/original date entered in [employer]
mesalamine 1.2 gram tablet,delayed release (Lialda) 1.2 g PO BID Gastrointestinal Issue 03/05/14
aspirin 81 mg tablet,delayed release 81 mg PO HS Blood Clot Prevention/Tx 11/30/22
lutein 20 mg tablet 20 mg PO DAILY Supplement ##0 11/30/22
pentoxifylline 400 mg tablet,extended release 400 mg PO TID circulation 11/30/22
vit C 250 mg-vit E 90 mg-zinc 40 mg-copper 1 [id number] capsule (PreserVision AREDS-2) 2 tab PO NOON Supplement 11/30/22
carbidopa 25 mg-levodopa 100 mg tablet 1 tab PO QID Neurological Condition 10/20/23
amoxicillin 875 mg-potassium clavulanate 125 mg tablet 1 tab PO Q12H 7 days #14 tabs 10/24/23
ciprofloxacin HCl 750 mg tablet 750 mg PO BID 7 days #14 tabs 10/24/23
sodium hypochlorite 0.125 % solution (Dakin's Solution) 1 applic topical BID #473 mL 10/24/23
white petrolatum 42 % topical ointment (Hydrophor) 1 applic topical DAILY #454 grams 10/24/23
Home Medication Changes
amoxicillin 875 mg-potassium clavulanate 125 mg tablet 1 tab PO Q12H 7 days #14 tabs 10/24/23
ciprofloxacin HCl 750 mg tablet 750 mg PO BID 7 days #14 tabs 10/24/23
sodium hypochlorite 0.125 % solution (Dakin's Solution) 1 applic topical BID #473 mL 10/24/23
white petrolatum 42 % topical ointment (Hydrophor) 1 applic topical DAILY #454 grams 10/24/23
Pending Results: No
[2023-10-24 14:01] VITALS: BP 117/49
--- NOTE | 2023-10-24 15:12 | PTCARENOTE ---
Rn hospice volunteer coordinator- Dc instruction reviewed with on the phone. All questions answered.
== END 2023-10-24 15:24 | disposition home health service (06) | DRG 300 ==
LOC: 4 WEST ACU 21:34
PROVIDERS: Physician Assistant; Student in an Organized Health Care Education/Training Program; ADMITTING PHYSICIAN Hospitalist; ATTENDING PHYSICIAN Internal Medicine; CONSULT PHYSICIAN Internal Medicine Infectious Disease; EMERGENCY PHYSICIAN Emergency Medicine; FAMILY PHYSICIAN Internal Medicine
DX: I87.2 Venous insufficiency (chronic) (peripheral) (principal); E87.1 Hypo-osmolality and hyponatremia; L03.116 Cellulitis of left lower limb; K51.90 Ulcerative colitis, unspecified, without complications; I87.8 Other specified disorders of veins; I25.10 Atherosclerotic heart disease of native coronary artery without angina pectoris; G20.A1 Parkinson's disease without dyskinesia, without mention of fluctuations
CPT/HCPCS: 73590; 80048; 80053; 83935; 84300; 85025; 85027; 86140; 87070; 87205; 93005; 96365; 96366; 96375; 97166; 97530; 99284

== ENCOUNTER → 2023-11-01 16:50 | Outpatient (REF) | payer MEDICARE, BC, SELFPAY ==
[2023-11-01 17:17] LABS: Blood Urea Nitrogen 11 mg/dl (9-20); Calcium 8.8 mg/dl (8.4-10.2); Carbon Dioxide 27 mmol/L (22-30); Chloride 103 mmol/L (98-107); Glucose 67 mg/dl (70-99); Potassium 4.9 mmol/L (3.5-5.1); Sodium 140 mmol/L (135-145); eGFR > 60.00
== END ==
LOC: CLAB 16:50
PROVIDERS: ATTENDING PHYSICIAN Internal Medicine
DX: L97.929 Non-pressure chronic ulcer of unspecified part of left lower leg with unspecified severity (principal)
CPT/HCPCS: 36415; 80048

== ENCOUNTER 2023-11-24 17:27 | Inpatient (IN) | payer MEDICARE, BC, SELFPAY ==
[2023-11-24] VITALS (7 sets, daily range): BP systolic 113–142; BP diastolic 37–51; BMI 25.1; BMI 22.6
[2023-11-24 13:12] LABS: % Basophils 0.3 % (0-2); % Immature Granulocytes 0.7 % (0-0.5); % Lymphocytes 4.5 % (20.5-51.1); % Monocytes 5.2 % (1.7-9.3); % Neutrophils 89.3 % (42.2-75.2); Absolute Basophils 0.1 10^3/uL (0-0.2); Absolute Immature Granulocytes 0.1 10^3/uL (0-0.05); Absolute Lymphocytes 0.7 10^3/uL (1.2-3.4); Absolute Monocytes 0.8 10^3/uL (0.1-0.6); Absolute Neutrophils 13.8 10^3/uL (1.4-6.5); Hematocrit 30.5 % (39.0-52.0); Hemoglobin 10.2 g/dL (13.0-18.0); Mean Corp Hgb Conc. 33.4 g/dL (33.0-37.0); Mean Corpuscular Hgb 28.4 pg (27.0-31.0); Mean Platelet Volume 8.4 fL (7.4-10.4); Nucleated Red Blood Cells % 0 % (-); Platelet Count 273 10^3/uL (130-400); Red Blood Cell Count 3.59 10^6/uL (4.70-6.10); Red Cell Dist. Width 13.3 % (11.5-14.5); White Blood Cell Count 15.4 10^3/uL (4.8-10.8)
[2023-11-24 13:26] LABS: ALT (SGPT) < 10 U/L (0-50); AST (SGOT) 22 U/L (17-59); Alkaline Phosphatase 103 U/L (38-126); Blood Urea Nitrogen 26 mg/dl (9-20); Calcium 8.1 mg/dl (8.4-10.2); Carbon Dioxide 25 mmol/L (22-30); Chloride 98 mmol/L (98-107); Estimated Creatinine Clearance 54 ml/min; Glucose 115 mg/dl (70-99); Potassium 4.6 mmol/L (3.5-5.1); Sodium 134 mmol/L (135-145); Total Bilirubin 0.7 mg/dl (0.2-1.3); Total Protein 6.3 g/dl (6.3-8.2); eGFR > 60.00
--- NOTE | 2023-11-24 14:17 | ED.GENMED ---
History of Present Illness
General
Chief Complaint: Weakness
Source: patient
Exam Limitations: none
Time Seen by Provider: 11/24/23 13:06
Nursing documentation reviewed up to this point in time: agreed with
History of Present Illness
History of Present Illness:
Patient is an 87-year-old male with past medical history of chronic lower extremity wounds venous insufficiency /venous stasis hypertension hyperlipidemia ulcerative colitis presents to the ER via EMS. at bedside reports patient has been very
weak and has declined over the past 2 days. He has had no appetite. She does report she notes increased drainage from the left lower extremity wound and foul smell.
Patient was admitted October 19 and discharged October 23 for cellulitis of left lower extremity. In the past patient has had Pseudomonas and MSSA growth. In addition patient also had documented hyponatremia.
Patient denies fevers but complains of weakness.
Past History
Past History
ED Past Medical History: HTN, Hypercholesterolemia, Other and Other
ED Past Surgical History: Other (Hemicolectomy)
Social History
Tobacco: Non-smoker
Alcohol: None
Drug: None
Personal:
Living: with family
Review of Systems
Review of Systems
Allergies reviewed?: Yes
Other source history: family
All Other Systems: ROS reviewed and negative except as documented in HPI and ROS
Constitutional: Reports fatigue; Denies fever
Respiratory: Reports no symptoms
Cardiac: Reports no symptoms
ABD/GI: Reports other (Decreased appetite)
Skin: Reports no symptoms
Neurological: Reports no symptoms
Psychiatric: Reports no symptoms
Phy Exam
General Physical Exam
General Presentation: no apparent distress
General age: appears stated age
General Skin: warm and dry
General Habitus: elderly
General Mental: alert
General Hydration: dry mucous membranes
Cardiovascular Exam
Cardiovascular Exam: regular rate/rhythm, no murmur and normal peripheral pulses
Pulmonary Exam
Pulmonary Exam: lungs clear and no respiratory distress
Neurological Exam
Neurological Exam: alert and oriented x3
Musculoskeletal Exam
Musculoskeletal Exam: other (Bilateral lower legs with obvious wound to her left lower leg with significant wound with foul-smelling purulent drainage. Patient present with dressing saturated. pulses obtained by doppler )
Skin Exam
Skin Exam: normal color and warm/dry
Psychiatric Exam
Psychiatric Exam: normal mood/affect
Course
Orders/Labs/Results
Orders:
Orders
11/24/23 12:29
EKG [Electrocardiogram (*1)] Urgent
Reason for Study: Chest Pain
EKG- Treatment ONCE
11/24/23 13:01
Complete Blood Count/With Diff Urgent
Comprehensive Metabolic Panel Urgent
11/24/23 13:42
COVID-19 Antigen Urgent
Source: Nasal Swab
Influenza A+B Rapid Molecular Urgent
MARBELLA Source: Nasal Swab
Specimen Description:
11/24/23 15:20
Piperacillin/Tazo 3.375 Gram [Zosyn] 3.375 gram in 50 ml IV NOW
11/24/23 15:35
Lactic Acid Q4H
Comment: CANCEL 2nd LACTIC ACID IF 1st LACTIC ACID IS LESS THAN 2
Blood Culture Routine
MARBELLA Source: Blood/Venous
Specimen Description:
Blood Culture Urgent
MARBELLA Source: Blood/Venous
Specimen Description:
Wound Culture [Wound/Abscess/Other Culture] Urgent
MARBELLA Source: Leg
Specimen Description: Left
Date Specimen was Collected: 11/24/23
Time Specimen was Collected: 14:27
11/24/23 16:22
0.9% Sodium Chloride 500 ml [Nss] 500 ml IV BOLUS
11/24/23 16:23
UA Reflex to Culture [Urinalysis Reflex To Culture] Urgent
11/24/23 18:30
Lactic Acid Q4H
Comment: CANCEL 2nd LACTIC ACID IF 1st LACTIC ACID IS LESS THAN 2
Abnormal Lab Results
11/24/23
13:01
WBC 15.4 H 10^3/uL
(4.8-10.8)
RBC 3.59 L 10^6/uL
(4.70-6.10)
Hgb 10.2 L g/dL
(13.0-18.0)
Hct 30.5 L %
(39.0-52.0)
Abs Immat Gran (auto) 0.1 H 10^3/uL
(0-0.05)
Absolute Neuts (auto) 13.8 H 10^3/uL
(1.4-6.5)
Absolute Lymphs (auto) 0.7 L 10^3/uL
(1.2-3.4)
Absolute Monos (auto) 0.8 H 10^3/uL
(0.1-0.6)
Immature Gran % 0.7 H %
(0-0.5)
Neutrophils % 89.3 H %
(42.2-75.2)
Lymphocytes % 4.5 L %
(20.5-51.1)
Sodium 134 L mmol/L
(135-145)
BUN 26 H mg/dl
(9-20)
Glucose 115 H mg/dl
(70-99)
Calcium 8.1 L mg/dl
(8.4-10.2)
Albumin 3.0 L g/dl
(3.5-5.0)
11/24/23 13:01
11/24/23 13:01
Vital Signs
Initial and Last Documented VS:
Initial Vital Signs
Pulse Resp BP Pulse Ox
84 22 121/42 100
11/24/23 12:30 11/24/23 12:30 11/24/23 12:30 11/24/23 12:30
Last Documented Vital Signs
Temp Pulse Resp BP Pulse Ox
98.6 F 81 23 113/39 100
11/24/23 12:39 11/24/23 15:00 11/24/23 15:00 11/24/23 15:00 11/24/23 15:00
MDM/Problems Addressed
Differential Diagnosis Includes:
Not limited to dehydration infected wound
MDM/Problems Addressed:
Patient will require admission for weakness with significant wounds to bilateral extremities left greater than right. Left lower extremity as document has obvious foul smell purulent drainage presented with weeping dressing. Patient is afebrile
however white count elevated at 15.4. As documented patient was recently discharged October 23 for the cellulitis of left lower extremity he was given Zosyn and discharged on Augmentin and Cipro through October 29.
Will admit for continued evaluation and antibiotics. Patient also very weak dry on exam BUN elevated 26. Patient give small fluid bolus . will order urine
will need PT consult
Chronic conditions affecting care:
Chronic venous insufficiency chronic bilateral leg wounds former smoker
*Pulse Oximetry
Patient hypoxic: no
*Critical Care Note
Total Time (30-74mins, 75-104mins- exclusive of procedures): Not Applicable
ED Attending Note
-
Portions of this chart may have been created with voice recognition software.� Occasional wrong word or��sound alike� substitutions may have occurred due to the inherent limitations of voice recognition software.
Discharge Plan
Departure
Patient Disposition: Admit
Date of Disposition: 11/24/23
Time of Disposition: 16:24
Admit to: Med/Surg
Admit to doctor: hospitaist
Presentation/result/management discussed w/ accepting MD/DO: Hospitalist
Patient with high blood pressure during this ER visit?: No
Condition: Fair
Covid-19: Not Applicable
Discharge Problem:
infected leg wound, Weakness, Acute dehydration
Prescriptions:
No Action
mesalamine [Lialda] 1.2 GM tablet,delayed release (DR/EC)
1.2 g PO BID
aspirin 81 mg Tablet,Delayed Release (Dr/Ec)
81 mg PO HS
pentoxifylline 400 mg tablet extended release
400 mg PO TID
lutein 20 mg Tablet
20 mg PO DAILY Qty: 0
PreserVision AREDS-2 250-90-40-1 mg Capsule
2 tab PO NOON
carbidopa-levodopa 25-100 mg tablet
1 tab PO QID
Aquaphor Ointment
1 applic TOPICAL DAILY
Theragen Tablet
1 tab PO DAILY
Systane (PF) 0.4-0.3 % Dropperette
1 drp OPHTHALMIC (EYE) Q4HPRN PRN (Reason: dry eyes)
Referrals:
Payam Forbes DO [Family Provider] -
Discharge Date and Time
Print Language: GUATEMALAN
[2023-11-24 14:53] LABS: COVID-19 Antigen Negative (Negative)
[2023-11-24 16:09] LABS: Lactic Acid 1.3 mmol/L (0.7-2.0)
--- NOTE | 2023-11-24 16:34 | HPS.HSE ---
Family Physician
-
Family Physician: Payam Forbes
Chief Complaint
-
weakness and drainage form chr g wound
History of Present Illness
HPI
87M [facility] HX PAD, chronic bilateral lower extremity venous stasis wounds, for which he goes to [facility] wound care center once a week with home wound nurse visits twice a week, HX Parkison's dz, HLD, UC pw weak and has declined over the
past 2 days. He has had no appetite. She does report she notes increased drainage from the left lower extremity wound and foul smell.
HX admission October 19 and discharged October 23 for cellulitis of left lower extremity.
In the past patient has had Pseudomonas and MSSA growth.
Patient denies fevers but complains of weakness.
Medical History
Past Medical History
Past Medical History: Reports Other
Additional Past Medical History:
Hypertension
ASCVD / PAD
Chronic Venous Stasis
Chronic LE Wounds
Parkinson's Disease
Ulcerative Colitis
Past Surgical History: Reports Other
Additional Past Surgical History:
Colon Resection
Left Femoral Stent
Social History
Tobacco: Former Smoker (Quit in 1984.)
Alcohol: Occasional
Family History
Family History: Not pertinent
Allergies / Home Medications
Allergies reflects when Allergies were last updated in [employer]
Home Medications with original date entered in [employer]
Allergy/Medication List:
Allergies
Allergy/AdvReac Type Severity Reaction Status Date / Time
Cephalosporins Allergy Rash Verified 10/20/23 16:40
levofloxacin [From Levaquin] Allergy Rash Verified 10/20/23 16:40
sulfamethoxazole Allergy Rash Verified 10/20/23 16:40
[From Bactrim]
trimethoprim [From Bactrim] Allergy Rash Verified 10/20/23 16:40
Home Medications
mesalamine 1.2 gram tablet,delayed release (Lialda) 1.2 g PO BID Gastrointestinal Issue 03/05/14
aspirin 81 mg tablet,delayed release 81 mg PO HS 11/30/22
lutein 20 mg tablet 20 mg PO DAILY Supplement ##0 11/30/22
pentoxifylline 400 mg tablet,extended release 400 mg PO TID circulation 11/30/22
vit C 250 mg-vit E 90 mg-zinc 40 mg-copper 1 [id number] capsule (PreserVision AREDS-2) 2 tab PO NOON Supplement 11/30/22
carbidopa 25 mg-levodopa 100 mg tablet 1 tab PO QID 10/20/23
Review of Systems
-
History Source: Patient
A 12 point ROS was completed and negative except as noted: Yes
Constitutional: Denies Fever or Chills
Respiratory: Denies Cough or Trouble Breathing
Cardiac: Denies Chest Pain or Palpitations
Abdomen/GI: Denies Abdominal Pain, Nausea, Vomiting or Diarrhea
: Denies Dysuria, Frequency or Flank Pain
Musculoskeletal: Reports Edema; Denies Joint Pain
Neurological: Denies Dizzy or Headache
Psych: Denies Depression or Anxiety
Physical Exam
Vital Signs
Vital Signs
Temp Pulse Resp BP Pulse Ox
98.6 F 80 25 117/43 100
11/24/23 12:39 11/24/23 16:30 11/24/23 16:30 11/24/23 16:00 11/24/23 16:30
Physical Exam
General: Other (87y M in no acute distress.)
HEENT: Moist mucous membranes and PERRLA
Respiratory: Clear; No Wheezes, Rales or Rhonchi
Cardiac: S1/S2 and Regular Rhythm; No Murmur
GI: Soft, Non Tender, Non Distended and Normal Bowel Sounds
Musculoskeletal: Other (Chronic stasis skin changes. LEs with new dressings in place here in the ED)
Skin: Ulcers (circumferentila large chr Leg wound both Dave Lt > Rt with yellow exudate and mal odour )
Neuro: AO x 3
Laboratory Results
-
11/24/23 13:01
11/24/23 13:01
Laboratory Results
Lactic Acid 1.3 mmol/L (0.7-2.0) 11/24/23 15:35
Total Bilirubin 0.7 mg/dl (0.2-1.3) 11/24/23 13:01
AST 22 U/L (17-59) 11/24/23 13:01
ALT < 10 U/L (0-50) 11/24/23 13:01
Alkaline Phosphatase 103 U/L (38-126) 11/24/23 13:01
Data Reviewed
-
Lab Data: Labs Reviewed by me
Old Records: Reviewed
Impression/Plan
-
Vital Signs
Temp Pulse Resp BP Pulse Ox
98.6 F 80 25 117/43 100
11/24/23 12:39 11/24/23 16:30 11/24/23 16:30 11/24/23 16:00 11/24/23 16:30
Laboratory Tests
10/24/23 11/24/23 11/24/23
06:29 13:01 13:42
WBC 15.4 H
Hgb 10.8 L 10.2 L
Sodium 134 L
BUN 26 H
Creatinine 1.1
eGFR > 60.00
Lactic Acid Pending
SARS-CoV-2 Antigen Negative
Last hospitalist admission:
DATE OF ADMISSION: 10/20/2023 - DATE OF DISCHARGE: 10/24/2023
DISCHARGE DIAGNOSES:
1. Chronic left lower extremity wounds.
2. Cellulitis, left lower extremity.
3. Chronic venous stasis.
ASSESSMENT & PLAN
LLE cellulitis venous stasis chr wound infection
Allergy to sulfa, cephalosporin, levofloxacin (tolerated cipro in the past).
Likely polymicrobial organisms including Pseudomonas
Associate weakness
Multple ABx allergy
- Empiric Zosyn
- Wound care and compression.
- ID consult
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
Parkinson's
HTN
Dyslipidemia
PAD s/p left femoral stent
CKD
Ulcerative colitis s/p hemicolectomy
Chronic BLE venous stasis wounds
DVT Px: LMWH
Code: Full code
IP MS
[2023-11-24] MEDS: ZOSYN 50 IV ×2 (17:00→23:21)
[2023-11-24] MEDS: NSS 500 IV (17:24)
--- NOTE | 2023-11-24 21:00 | PTCARENOTE ---
Pt. admitted from E.D., AAO x3, vs stable, lower leg sores cleaned and dressed, unstageble left buttocks wound, cleaned and applied foam dressing, call rosario within reach.
[2023-11-24] MEDS: TRENTAL 400 MG PO (21:20)
[2023-11-24] MEDS: ASPIR LOW (ENTERIC COATED) 81 MG PO (21:20)
[2023-11-24] MEDS: SINEMET 25-100 1 TABLET PO (21:20)
[2023-11-24] MEDS: LOVENOX 40 MG SC (21:20)
[2023-11-24] MEDS: SINEMET 25-100 PO (23:15)
[2023-11-25] MEDS: ZOSYN 50 IV ×4 (04:46→23:30)
[2023-11-25 05:56] VITALS: BMI 23.2
[2023-11-25 06:50] LABS: Hematocrit 28.8 % (39.0-52.0); Hemoglobin 9.8 g/dL (13.0-18.0); Mean Corpuscular Hgb 29.7 pg (27.0-31.0); Mean Corpuscular Volume 87.3 fL (80.0-94.0); Mean Platelet Volume 9.3 fL (7.4-10.4); Platelet Count 233 10^3/uL (130-400); Red Cell Dist. Width 13.2 % (11.5-14.5)
[2023-11-25 07:21] LABS: Blood Urea Nitrogen 26 mg/dl (9-20); Calcium 7.4 mg/dl (8.4-10.2); Carbon Dioxide 24 mmol/L (22-30); Chloride 97 mmol/L (98-107); Estimated Creatinine Clearance 59 ml/min; Glucose 85 mg/dl (70-99); Potassium 4.2 mmol/L (3.5-5.1); Sodium 132 mmol/L (135-145); eGFR > 60.00
[2023-11-25 07:25] VITALS: BP 116/47
[2023-11-25] MEDS: SINEMET 25-100 1 TABLET PO ×4 (09:14→20:58)
[2023-11-25] MEDS: TRENTAL 400 MG PO ×3 (09:14→20:58)
[2023-11-25] MEDS: THERAGRAN 1 TABLET PO (09:15)
[2023-11-25] MEDS: HYDROPHOR 1 APPLIC TOPICAL (09:15)
[2023-11-25] MEDS: OCUVITE SOFTGEL 2 CAP PO (11:49)
[2023-11-25 12:32] LABS: Urine Albumin Trace (Neg - Trace); Urine Bilirubin Negative (Negative); Urine Character Clear (Clear); Urine Color Yellow; Urine Glucose Negative (Negative); Urine Ketone Negative (Negative); Urine Leukocyte Trace (Negative); Urine Nitrite Negative (Negative); Urine Occult Blood Negative (Negative); Urine Urobilinogen Negative (Neg - 1+)
[2023-11-25 12:44] LABS: Urine Bacteria Few (Negative)
[2023-11-25 13:07] VITALS: BMI 23.2
[2023-11-25 15:23] VITALS: BP 117/48
--- NOTE | 2023-11-25 16:13 | CON.ID ---
Consultation
-
Date/Time Consultation Requested: 11/24/23 22:47
Date/Time Consultation Performed: 11/25/23 16:13
Requesting Provider: Dr Jacques
Performing Provider: Dr Frazier
Reason for Consultation: Infected Chr b/l venous stasos ulcers
Chief Complaint / Past History
Chief Complaint
weakness; drainage from chronic wound
History of Present Illness
Mr Camarena is an 87 year old male with history of PAD, chronic bilateral venous stasis wounds following with [facility] wound care, UC on mesalamine, parkinsons who presented here 11/23 for weakness, poor appetite x2 days. 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 Patients wound previously colonized with MSSA and pseudomonas.
Since arrival here patient has been afebrile, bp stable, wbc initially 15.4 now 10, hgb 10.2, plt 273, L shift noted, cr 1.1, lactic acid 1.3, t bili 0.7, ast 22, alt <10, alk phos 103, UA no pyuria, covid ag neg, 10/19 tib/fib xray: chronic
benign-appearing linear periosteal reaction. Similar prior examination, the medial cortical margin of the mid to distal fibula demonstrates diffuse demineralization and indistinct margination. Findings likely reflect chronic venous stasis, 11/23
wound culture moderate proteus, 12/03 blood cultures x2 no growth to date, mrsa screen pending currently on zosyn, ID is consulted for assistance with management
Past History
Additional Past Medical History:
Hypertension
ASCVD / PAD
Chronic Venous Stasis
Chronic LE Wounds
Parkinson's Disease
Ulcerative Colitis
Additional Past Surgical History:
Colon Resection
Left Femoral Stent
Allergy History:
Cephalosporins Allergy (Verified 11/24/23 12:39)
Rash
levofloxacin [From Levaquin] Allergy (Verified 11/24/23 12:39)
Rash/tolerated cipro
sulfamethoxazole [From Bactrim] Allergy (Verified 11/24/23 12:39)
Rash
trimethoprim [From Bactrim] Allergy (Verified 11/24/23 12:39)
Rash
Medications Reviewed: Yes
Social History
Tobacco: Former Smoker
Alcohol: Occasional
Drug: None
Family History
Family History: Not Pertinent
Review of Systems
Review of Systems
General: Negative Fever or Chills
All systems: All other systems were reviewed and were negative
Vital Signs
Temp Pulse Resp BP Pulse Ox
97.5 F 69 16 117/48 98
11/25/23 15:23 11/25/23 15:23 11/25/23 15:23 11/25/23 15:23 11/25/23 15:23
Physical Exam
Physical Exam
Constitutional: No Acute Distress and Chronically Ill
Cardiovascular: Regular Rate and S1/S2; Negative Murmur or Rub
Pulmonary: Clear and Symmetric; Negative Wheezes, Rales or Rhonchi
Gastrointestinal: Soft, Non Tender, Non Distended and Normal Bowel Sounds
Skin: Warm and Dry; Negative Rash or Jaundice
Wound: Other (L leg extensive superficial venous stasis wound with developing eschar)
Lab / Diagnostic Study Results
11/25/23 05:34
11/25/23 05:34
Abs Immat Gran (auto) 0.1 10^3/uL (0-0.05) H 11/24/23 13:01
Absolute Neuts (auto) 13.8 10^3/uL (1.4-6.5) H 11/24/23 13:01
Absolute Lymphs (auto) 0.7 10^3/uL (1.2-3.4) L 11/24/23 13:01
Absolute Monos (auto) 0.8 10^3/uL (0.1-0.6) H 11/24/23 13:01
Absolute Basos (auto) 0.1 10^3/uL (0-0.2) 11/24/23 13:01
Immature Gran % 0.7 % (0-0.5) H 11/24/23 13:01
Neutrophils % 89.3 % (42.2-75.2) H 11/24/23 13:01
Lymphocytes % 4.5 % (20.5-51.1) L 11/24/23 13:01
Monocytes % 5.2 % (1.7-9.3) 11/24/23 13:01
Eosinophils % 0.0 % (0-6) 11/24/23 13:01
Basophils % 0.3 % (0-2) 11/24/23 13:01
Lactic Acid Cancelled 11/24/23 18:30
Ur Squamous Epith Cells 3-5 /LPF (Few) 11/25/23 12:05
Microbiology Results
Micro:
11/24/23 15:35 Blood Culture - Preliminary
Blood/Venous No Growth in 24 hours- Final report to follow
11/24/23 15:35 Blood Culture - Preliminary
Blood/Venous No Growth in 24 hours- Final report to follow
11/25/23 11:56 MRSA Screen - Pending
Nose
11/24/23 15:35 Wound Culture - Preliminary
Leg - Left Proteus species
Gram Stain - Preliminary
11/24/23 13:42 Influenza Types A & B (BOONE) - Final
Nasal Swab Negative for Influenza A & B, NAAT
Negative results must be combined with clinical observations
and patient history.
Nucleic Acid Amplification test (NAAT)performed on the
[employer] platform.
Assessment / Plan
Chronic Wound with suprainfection
Stated allergies to: cephalosporins (rash), levofloxacin (rash), bactrim (rash)
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
- wound culture in progress Proteus
- blood cultures x2 were sent, would not typically do these for cellulitis without shock; these are no growth to date
- agree with nika, follow proteus for sensi - appears to be improving
- follow mrsa screen
follow clinically
--- NOTE | 2023-11-25 16:22 | CM ---
manager float reviewed patient's chart and met with patient and patient lives with spouse in a multilevel home, with 3 steps to enter, patient is independent with adl's and uses a cane or walker with ambulation, patient is current with [facility], but
would benefit from daily wound care they are not agreeable to skilled, they have reached out to [facility] but they are unable to obtain daily wound care ever with offering private pay.
Pharmacy: [facility]
PCP: Dr. Forbes
Plan; [facility]
--- NOTE | 2023-11-25 16:44 | W.PN.HOSP.TC ---
Today's Communication/Plan
-
Continue antibiotics and wound care
Appreciate Infectious Disease evaluation and recommendations
Assessment / Plan
Assessment / Plan
Physical Exam
General: Other (87y M in no acute distress.)
HEENT: Moist mucous membranes
Respiratory: CTAB
Cardiac: S1/S2 and Regular Rhythm
GI: Soft, Non Tender, Non Distended and Normal Bowel Sounds
Musculoskeletal: Other (Chronic stasis skin changes. LEs with new dressings in place)
Neuro: AAO x 3
Last hospitalist admission:
DATE OF ADMISSION: 10/20/2023 - DATE OF DISCHARGE: 10/24/2023
DISCHARGE DIAGNOSES:
ASSESSMENT & PLAN
LLE cellulitis
Chronic Venous Stasis
Chronic left lower extremity wounds.
Allergy to multiple antibiotics: sulfa, cephalosporin, levofloxacin (tolerated cipro in the past).
History of Pseudomonas
Associate weakness
Multple ABx allergy
- Empiric Zosyn
- Wound care and compression.
- ID consulted, appreciate evaluation and recommendations
Hyponatremia
- Sodium stable in the low 130s
- PO Fluid restriction
ASCVD / PAD
- Stable.
- Continue ASA.
Parkinson's Disease
- Stable. Continue Sinemet dosing without changes.
-PT/OT
Ulcerative Colitis
- Stable. No current / active symptoms.
- Continue mesalamine.
- s/p prior colectomy.
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
Parkinson's
HTN
Dyslipidemia
PAD s/p left femoral stent
CKD
Ulcerative colitis s/p hemicolectomy
Chronic BLE venous stasis wounds
DVT Prophylaxis: LMWH
Code: Full code
Anticipated Discharge: > 48 hours
Subjective/Interval History
-
Date of Service: November 25, 2023
Patient was seen and examined. No new complaints.
Objective Data
-
Labs:
Laboratory Results
11/25/23
05:34
WBC 10.0
Hgb 9.8 L
Hct 28.8 L
Plt Count 233
Sodium 132 L
Potassium 4.2
Chloride 97 L
Carbon Dioxide 24
BUN 26 H
Creatinine 1.0
Glucose 85
Calcium 7.4 L
Vital Signs:
Vital Signs
Temp Pulse Resp BP Pulse Ox
97.5 F 69 16 117/48 98
11/25/23 15:23 11/25/23 15:23 11/25/23 15:23 11/25/23 15:23 11/25/23 15:23
I&O
11/24/23 11/25/23 11/26/23
06:59 06:59 06:59
Intake Total 220 / 220
Balance 220 / 220
[2023-11-25] MEDS: LOVENOX 40 MG SC (17:32)
[2023-11-25] MEDS: ASPIR LOW (ENTERIC COATED) 81 MG PO (20:58)
[2023-11-25] MEDS: TYLENOL 650 MG PO (21:35)
[2023-11-25 23:00] VITALS: BP 107/49
[2023-11-26] MEDS: ZOSYN 50 IV ×4 (04:10→22:28)
[2023-11-26 06:00] VITALS: BMI 23.3
[2023-11-26 07:00] VITALS: BP 123/50
[2023-11-26] MEDS: BENADRYL 25 MG IV (08:28)
[2023-11-26] MEDS: HYDROPHOR 1 APPLIC TOPICAL (08:30)
[2023-11-26] MEDS: THERAGRAN 1 TABLET PO (08:30)
[2023-11-26] MEDS: SINEMET 25-100 1 TABLET PO ×4 (08:30→21:52)
[2023-11-26] MEDS: TRENTAL 400 MG PO ×3 (08:30→21:52)
[2023-11-26] MEDS: DESENEX/MITRAZOL/ZEASORB 1 APPLIC TOPICAL ×2 (08:31→19:57)
[2023-11-26 09:03] LABS: % Basophils 0.3 % (0-2); % Eosinophils 1.8 % (0-6); % Immature Granulocytes 0.3 % (0-0.5); % Lymphocytes 9.3 % (20.5-51.1); % Monocytes 10.5 % (1.7-9.3); % Neutrophils 77.8 % (42.2-75.2); Absolute Eosinophils 0.1 10^3/uL (0-0.7); Absolute Lymphocytes 0.6 10^3/uL (1.2-3.4); Absolute Monocytes 0.7 10^3/uL (0.1-0.6); Absolute Neutrophils 5.2 10^3/uL (1.4-6.5); Hematocrit 30.3 % (39.0-52.0); Hemoglobin 10.2 g/dL (13.0-18.0); Mean Corp Hgb Conc. 33.7 g/dL (33.0-37.0); Mean Corpuscular Hgb 29.2 pg (27.0-31.0); Mean Corpuscular Volume 86.8 fL (80.0-94.0); Nucleated Red Blood Cells % 0 % (-); Platelet Count 221 10^3/uL (130-400); Red Blood Cell Count 3.49 10^6/uL (4.70-6.10); Red Cell Dist. Width 13.2 % (11.5-14.5); White Blood Cell Count 6.7 10^3/uL (4.8-10.8)
[2023-11-26 09:10] LABS: Blood Urea Nitrogen 20 mg/dl (9-20); Calcium 7.9 mg/dl (8.4-10.2); Carbon Dioxide 27 mmol/L (22-30); Chloride 97 mmol/L (98-107); Estimated Creatinine Clearance 59 ml/min; Glucose 98 mg/dl (70-99); Potassium 3.7 mmol/L (3.5-5.1); Sodium 133 mmol/L (135-145); eGFR > 60.00
--- NOTE | 2023-11-26 09:49 | W.PN.ID1 ---
Date of Service
Date of Service: November 26, 2023
Today's Communication
continue zosyn
Assessment / Plan
Chronic Wound with suprainfection
Stated allergies to: cephalosporins (rash), levofloxacin (rash), bactrim (rash)
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
- folliculitis of the back - not a drug rash, bathe patient today if possible
- wound culture in progress - Proteus thus far
- blood cultures x2 were sent, would not typically do these for cellulitis without shock; these are no growth to date
- agree with zosyn, follow proteus for sensi - appears to be improving
- follow mrsa screen
follow clinically
Chief Complaint
-: Other (chronic wounds with suprainfection)
Subjective / Review of Systems
afebrile
concern for erythema along the buttocks/lower back this am
Vital Signs / Physical Exam
Vital Signs
Vital Signs
Temp Pulse Resp BP Pulse Ox
97.7 F 59 16 123/50 99
11/26/23 07:00 11/26/23 07:00 11/26/23 07:00 11/26/23 07:00 11/26/23 07:00
Physical Exam
Constitutional: No Acute Distress
Cardiovascular: Regular Rate and S1/S2; Negative Murmur or Rub
Pulmonary: Clear and Symmetric; Negative Wheezes or Rales
Gastrointestinal: Soft, Non Tender, Non Distended and Normal Bowel Sounds
Skin: Warm, Dry and Rash (minimal follicultis of the back); Negative Jaundice
Objective Data
Lab Data
Lab Results
11/26/23 08:27
11/26/23 08:27
Estimated Creat Clear 59 ml/min 11/26/23 08:27
Lactic Acid Cancelled 11/24/23 18:30
Total Bilirubin 0.7 mg/dl (0.2-1.3) 11/24/23 13:01
AST 22 U/L (17-59) 11/24/23 13:01
ALT < 10 U/L (0-50) 11/24/23 13:01
Alkaline Phosphatase 103 U/L (38-126) 11/24/23 13:01
Most recent labs reviewed.
Micro Results:
11/24/23 15:35 Wound Culture - Preliminary
Leg - Left Proteus species
Gram Stain - Preliminary
11/24/23 15:35 Blood Culture - Preliminary
Blood/Venous No Growth in 24 hours- Final report to follow
11/24/23 15:35 Blood Culture - Preliminary
Blood/Venous No Growth in 24 hours- Final report to follow
11/25/23 11:56 MRSA Screen - Pending
Nose
11/24/23 13:42 Influenza Types A & B (BOONE) - Final
Nasal Swab Negative for Influenza A & B, NAAT
Negative results must be combined with clinical observations
and patient history.
Nucleic Acid Amplification test (NAAT)performed on the
[employer] platform.
Care Review
Plan reviewed with: Physician (Dr Norman - rash on back)
[2023-11-26] MEDS: OCUVITE SOFTGEL 2 CAP PO (11:34)
[2023-11-26] MEDS: ZOSYN IV (11:35)
--- NOTE | 2023-11-26 13:52 | W.PN.HOSP.TC ---
Today's Communication/Plan
-
Continue Zosyn
Rash on back is not a drug allergy -- but folliculitis. Appreciate ID.
Assessment / Plan
Assessment / Plan
Physical Exam
General: Other (87y M in no acute distress.)
HEENT: Moist mucous membranes
Respiratory: CTAB
Cardiac: S1/S2 and Regular Rhythm
GI: Soft, Non Tender, Non Distended and Normal Bowel Sounds
Musculoskeletal: Other (Chronic stasis skin changes. LEs with new dressings in place)
Neuro: AAO x 3
ASSESSMENT & PLAN
LLE cellulitis
Chronic Venous Stasis
Chronic left lower extremity wounds.
Allergy to multiple antibiotics: sulfa, cephalosporin, levofloxacin (tolerated cipro in the past).
History of Pseudomonas
Associate weakness
Multple ABx allergy
- Wound culture growing Proteus
- Continue Zosyn
- Wound care and compression.
- ID consulted, appreciate evaluation and recommendations
Folliculitis of the back
-Appreciate ID evaluation
-Not a drug rash, bathe patient today if possible
-Can continue Zosyn
Hyponatremia
- Sodium stable in the low 130s
- PO Fluid restriction
ASCVD / PAD
- Stable.
- Continue ASA.
Parkinson's Disease
- Stable. Continue Sinemet dosing without changes.
-PT/OT
Ulcerative Colitis
- Stable. No current / active symptoms.
- Continue mesalamine.
- s/p prior colectomy.
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
Parkinson's
HTN
Dyslipidemia
PAD s/p left femoral stent
CKD
Ulcerative colitis s/p hemicolectomy
Chronic BLE venous stasis wounds
DVT Prophylaxis: LMWH
Code: Full code
Anticipated Discharge: > 48 hours
Subjective/Interval History
-
Date of Service: November 26, 2023
Patient was seen and examined. Nurse reported patient developed a rash on his back, otherwise, no new symptoms or complaints.
Objective Data
-
Labs:
Laboratory Results
11/26/23
08:27
WBC 6.7
Hgb 10.2 L
Hct 30.3 L
Plt Count 221
Sodium 133 L
Potassium 3.7
Chloride 97 L
Carbon Dioxide 27
BUN 20
Creatinine 1.0
Glucose 98
Calcium 7.9 L
Vital Signs:
Vital Signs
Temp Pulse Resp BP Pulse Ox
97.7 F 59 16 123/50 99
11/26/23 07:00 11/26/23 07:00 11/26/23 07:00 11/26/23 07:00 11/26/23 07:00
I&O
11/25/23 11/26/23 11/27/23
06:59 06:59 06:59
Intake Total 220 / 220 700 / 700
Output Total 150 / 150
Balance 220 / 220 550 / 550
[2023-11-26 15:10] VITALS: BP 119/50
[2023-11-26 15:19] LABS: Albumin 2.5 g/dl (3.5-5.0)
[2023-11-26] MEDS: LOVENOX 40 MG SC (18:25)
[2023-11-26] MEDS: ASPIR LOW (ENTERIC COATED) 81 MG PO (21:52)
[2023-11-26 23:12] VITALS: BP 123/59
[2023-11-27] MEDS: ZOSYN 50 IV ×2 (05:03→10:58)
[2023-11-27 06:00] VITALS: BMI 23.1
[2023-11-27 07:20] VITALS: BP 126/48
[2023-11-27 07:38] LABS: % Basophils 0.5 % (0-2); % Eosinophils 1.9 % (0-6); % Immature Granulocytes 0.3 % (0-0.5); % Lymphocytes 13.9 % (20.5-51.1); % Monocytes 13.5 % (1.7-9.3); % Neutrophils 69.9 % (42.2-75.2); Absolute Eosinophils 0.1 10^3/uL (0-0.7); Absolute Lymphocytes 0.8 10^3/uL (1.2-3.4); Absolute Monocytes 0.8 10^3/uL (0.1-0.6); Hematocrit 27.6 % (39.0-52.0); Hemoglobin 9.4 g/dL (13.0-18.0); Mean Corp Hgb Conc. 34.1 g/dL (33.0-37.0); Mean Corpuscular Hgb 29.3 pg (27.0-31.0); Mean Platelet Volume 9.3 fL (7.4-10.4); Nucleated Red Blood Cells % 0 % (-); Platelet Count 207 10^3/uL (130-400); Red Blood Cell Count 3.21 10^6/uL (4.70-6.10); Red Cell Dist. Width 13.2 % (11.5-14.5); White Blood Cell Count 5.8 10^3/uL (4.8-10.8)
[2023-11-27] MEDS: SINEMET 25-100 1 TABLET PO ×4 (07:52→21:13)
[2023-11-27] MEDS: TRENTAL 400 MG PO ×3 (07:52→21:13)
[2023-11-27] MEDS: THERAGRAN 1 TABLET PO (07:53)
[2023-11-27] MEDS: HYDROPHOR 1 APPLIC TOPICAL (07:55)
[2023-11-27] MEDS: DESENEX/MITRAZOL/ZEASORB 1 APPLIC TOPICAL ×2 (07:56→21:13)
[2023-11-27 08:04] LABS: Blood Urea Nitrogen 17 mg/dl (9-20); Calcium 7.7 mg/dl (8.4-10.2); Carbon Dioxide 26 mmol/L (22-30); Chloride 100 mmol/L (98-107); Estimated Creatinine Clearance 54 ml/min; Glucose 94 mg/dl (70-99); Magnesium 2.1 mg/dl (1.6-2.3); Potassium 3.5 mmol/L (3.5-5.1); Sodium 134 mmol/L (135-145); eGFR > 60.00
--- NOTE | 2023-11-27 08:29 | W.PN.HOSP.TC ---
Addendum entered and electronically signed by Wicho Reina MD 11/27/23 11:27:
Addendum
d/w wound care
- Left > right leg venous ulcers
- Patient has Stage 2 pressure sacral wound
c/w wound care, appreciate help
End
Original Note:
Today's Communication/Plan
-
c/w Zosyn
PT/OT
Assessment / Plan
Assessment / Plan
Physical Exam
General: Other (87y M in no acute distress.) Comfortable, sitting in chair
HEENT: Moist mucous membranes
Respiratory: CTAB
Cardiac: S1/S2 and Regular Rhythm
GI: Soft, Non Tender, Non Distended and Normal Bowel Sounds
Musculoskeletal: Other (Chronic stasis skin changes. LEs with new dressings in place)
Neuro: AAO x 3
ASSESSMENT & PLAN
#LLE cellulitis
Chronic Venous Stasis
Chronic left lower extremity wounds.
Allergy to multiple antibiotics: sulfa, cephalosporin, levofloxacin (tolerated cipro in the past).
History of Pseudomonas
Associate weakness
Multple ABx allergy
- Wound culture growing Proteus
- Continue Zosyn
- Blood cultures no growth
- Wound care and compression.
- ID consulted, appreciate evaluation and recommendations
#Folliculitis of the back
-Appreciate ID evaluation
-Not a drug rash,c/w skin hygiene
-Can continue Zosyn
#Hyponatremia
- Sodium stable in the low 130s
- PO Fluid restriction
#ASCVD / PAD
- Stable.
- Continue ASA.
Parkinson's Disease
- Stable. Continue Sinemet dosing without changes.
-PT/OT
Ulcerative Colitis
- Stable. No current / active symptoms.
- Continue mesalamine.
- s/p prior colectomy.
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
Parkinson's
HTN
Dyslipidemia
PAD s/p left femoral stent
CKD
Ulcerative colitis s/p hemicolectomy
Chronic BLE venous stasis wounds
DVT Prophylaxis: LMWH
Code: Full code
Total time spent to see the patient, examine the patient on the floor, review data and lab results, discuss treatment plan with patient, nursing staff around 55 minutes
Anticipated Discharge: > 48 hours
Subjective/Interval History
-
Date of Service: November 27, 2023
No chest pain
No sob
Less body aches and joints
Objective Data
-
Labs:
Laboratory Results
11/27/23
06:39
WBC 5.8
Hgb 9.4 L
Hct 27.6 L
Plt Count 207
Sodium 134 L
Potassium 3.5
Chloride 100
Carbon Dioxide 26
BUN 17
Creatinine 1.1
Glucose 94
Calcium 7.7 L
Vital Signs:
Vital Signs
Temp Pulse Resp BP Pulse Ox
98.4 F 71 16 123/59 95
11/26/23 23:12 11/26/23 23:12 11/26/23 23:12 11/26/23 23:12 11/26/23 23:12
I&O
11/26/23 11/27/23 11/28/23
06:59 06:59 06:59
Intake Total 700 / 700 820 / 820
Output Total 150 / 150 300 / 300
Balance 550 / 550 520 / 520
--- NOTE | 2023-11-27 08:37 | VNURNOTE ---
Chart reviewed. Patient is current with [facility] nursing. Will continue to follow hospital course.
--- NOTE | 2023-11-27 10:37 | WOUNDNOTE ---
WON RN note: Patient admitted with cellulitis of left leg. Patient had a recent admission 11/03 for cellulitis.
See H&P for complete history. Patient lives alternately here and [place]. He is followed by [facility].
PMH: HTN, PAD, L femoral stent 2015 in [place], CKD, ulcerative colitis, LLE venous ablation in [place], chronic LLE ulcers x 4 years, more recent RLE ulcer, venous insufficiency, former smoker.
Wound Location and type/assessment: Patient known to service for same leg venous ulcers, 12/01/22 and 11/03. Assessed patient along with RN, Erlin. Hydrophor previously ordered for dry skin. Current wound care ordered at not clear from patient
report. JORGE/TBI reviewed from 12/03 and were within normal limits. Patient reports wearing compression at home. L>R regarding open venous leg ulcers, large amt of serosanguineous drainage, slight odor noted.Skin surrounding wounds very dry and scaly,
heels intact. Patient admitted with DTI of sacrum surrounded by stage 2 appearing skin. Heels noted to have stage 1 at admission and were off-loaded on pillows and covered with sacral foam.
Appetite: good.
Pressure redistribution devices in place: Static Air overlay. Patient can turn self in bed.
Plan: Will confirm orders for Dakins, Santyl and compression with hospitalist. Heels off bed with pillows. Instructed patient to keep pressure off of sacrum by repositioning frequently. Repositioned patient onto R semi side lying position. RN
Walker given update. Will continue to follow as needed.
Note to case management requested for discharge: VN if patient wants.
Patient to follow up with his [facility] of choice.
--- NOTE | 2023-11-27 10:53 | WOUNDNOTE ---
LEFT LOWER LEG
--- NOTE | 2023-11-27 10:54 | WOUNDNOTE ---
LEFT MEDIAL ANKLE/LEG
[2023-11-27] MEDS: DAKIN'S SOLUTION 0.125% 1/4 STRENGTH 15 ML TOPICAL (10:55)
[2023-11-27] MEDS: SANTYL OINTMENT TOPICAL ×2 (10:56→11:32)
--- NOTE | 2023-11-27 11:01 | WOUNDNOTE ---
WON RN note: Patient admitted with cellulitis of left leg. Patient had a recent admission 11/03 for cellulitis.
See H&P for complete history. Patient lives alternately here and [place]. He is followed by [facility].
PMH: HTN, PAD, L femoral stent 2015 in [place], CKD, ulcerative colitis, LLE venous ablation in [place], chronic LLE ulcers x 4 years, more recent RLE ulcer, venous insufficiency, former smoker.
Wound Location and type/assessment: Patient known to service for same leg venous ulcers, 12/01/22 and 11/03. Assessed patient along with RN, Walker. Hydrophor previously ordered for dry skin. Current wound care ordered at not clear from patient
report. JORGE/TBI reviewed from 12/03 and were within normal limits. Patient reports wearing compression at home. L>R regarding open venous leg ulcers, large amt of serosanguineous drainage, slight odor noted.Skin surrounding wounds very dry and scaly,
heels intact. Patient admitted with DTI of sacrum (small ecchymotic purple areas surrounded by stage 2 appearing skin). Heels noted to have stage 1 at admission and were off-loaded on pillows and covered with sacral foam.
Appetite: good.
Pressure redistribution devices in place: Static Air overlay. Patient can turn self in bed.
Plan: Will confirm orders for Dakins, Santyl and compression with hospitalist. Heels off bed with pillows. Instructed patient to keep pressure off of sacrum by repositioning frequently. Zinco ointment and Sacral foam to sacral/coccyx and continue
to assess daily. Change sacral foam q 48 hours and PRN if loose or soiled. Repositioned patient onto R semi side lying position. RN Walker given update. Will continue to follow as needed.
Note to case management requested for discharge: VN if patient wants.
Patient to follow up with his [facility] of choice.
[2023-11-27 12:37] VITALS: BP 113/58; O2SAT 97
[2023-11-27] MEDS: OCUVITE SOFTGEL 2 CAP PO (12:50)
--- NOTE | 2023-11-27 12:58 | CM ---
sow manager continues to follow with patient progress, patient is current with [facility], and lives with spouse, patient's spouse was looking for daily woundcare and caser up reached out to [facility] to see if they could provided daily woundcare
through private duty. If family decided on [facility] visiting nurses, caser up would have to switch visiting nurse agencies.
Plan; Home with spouse and visiting nurses services.
--- NOTE | 2023-11-27 14:56 | W.PN.ID1 ---
Date of Service
Date of Service: November 27, 2023
Today's Communication
- switched to amoxicillin - will follow for tolerance and reassess wound tomorrow, plan to determine final duration tomorrow pending that exam
Assessment / Plan
Chronic Wound with suprainfection
Stated allergies to: cephalosporins (rash), levofloxacin (rash), bactrim (rash)
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
- folliculitis of the back - not a drug rash, bathe patient today if possible
- wound culture in progress - Proteus
- blood cultures x2 were sent, would not typically do these for cellulitis without shock; these are no growth to date
- mrsa screen negative
- switched to amoxicillin - will follow for tolerance and reassess wound tomorrow, plan to determine final duration tomorrow pending that exam
follow clinically
Chief Complaint
-: Other (chronic wounds with suprainfection)
Subjective / Review of Systems
afebrile
tolerating current therapies, no new complaints
Vital Signs / Physical Exam
Vital Signs
Vital Signs
Temp Pulse Resp BP Pulse Ox
98.1 F 62 18 126/48 95
11/27/23 07:20 11/27/23 07:20 11/27/23 07:20 11/27/23 07:20 11/27/23 07:20
Physical Exam
Constitutional: No Acute Distress
Cardiovascular: Regular Rate and S1/S2; Negative Murmur or Rub
Pulmonary: Clear and Symmetric; Negative Wheezes or Rales
Gastrointestinal: Soft, Non Tender, Non Distended and Normal Bowel Sounds
Skin: Warm and Dry; Negative Rash or Jaundice
Objective Data
Lab Data
Lab Results
11/27/23 06:39
11/27/23 06:39
Estimated Creat Clear 54 ml/min 11/27/23 06:39
Lactic Acid Cancelled 11/24/23 18:30
Total Bilirubin 0.7 mg/dl (0.2-1.3) 11/24/23 13:01
AST 22 U/L (17-59) 11/24/23 13:01
ALT < 10 U/L (0-50) 11/24/23 13:01
Alkaline Phosphatase 103 U/L (38-126) 11/24/23 13:01
Most recent labs reviewed.
Micro Results:
11/24/23 15:35 Wound Culture - Final
Leg - Left Proteus mirabilis
Gram Stain - Final
11/24/23 15:35 Blood Culture - Preliminary
Blood/Venous No Growth in 48 hours- Final report to follow
11/24/23 15:35 Blood Culture - Preliminary
Blood/Venous No Growth in 48 hours- Final report to follow
11/25/23 11:56 MRSA Screen - Final
Nose No Methicillin Resistant Staphylococcus aureus isolated.
11/24/23 13:42 Influenza Types A & B (BOONE) - Final
Nasal Swab Negative for Influenza A & B, NAAT
Negative results must be combined with clinical observations
and patient history.
Nucleic Acid Amplification test (NAAT)performed on the
[email or web address] platform.
[2023-11-27] MEDS: AMOXIL 500 MG PO ×2 (15:02→21:13)
[2023-11-27 16:00] VITALS: BP 138/55
[2023-11-27] MEDS: LOVENOX 40 MG SC (17:51)
[2023-11-27] MEDS: ASPIR LOW (ENTERIC COATED) 81 MG PO (21:13)
[2023-11-27 23:28] VITALS: BP 113/58
[2023-11-28] MEDS: AMOXIL 500 MG PO ×3 (04:49→21:04)
[2023-11-28 07:05] VITALS: BP 115/43
[2023-11-28 07:59] LABS: % Basophils 0.5 % (0-2); % Eosinophils 1.7 % (0-6); % Immature Granulocytes 0.7 % (0-0.5); % Lymphocytes 19.8 % (20.5-51.1); % Monocytes 11.5 % (1.7-9.3); % Neutrophils 65.8 % (42.2-75.2); Absolute Eosinophils 0.1 10^3/uL (0-0.7); Absolute Lymphocytes 1.2 10^3/uL (1.2-3.4); Absolute Monocytes 0.7 10^3/uL (0.1-0.6); Absolute Neutrophils 3.9 10^3/uL (1.4-6.5); Hematocrit 27.1 % (39.0-52.0); Hemoglobin 9.2 g/dL (13.0-18.0); Mean Corp Hgb Conc. 33.9 g/dL (33.0-37.0); Mean Corpuscular Hgb 28.3 pg (27.0-31.0); Mean Corpuscular Volume 83.4 fL (80.0-94.0); Mean Platelet Volume 9.3 fL (7.4-10.4); Nucleated Red Blood Cells % 0 % (-); Platelet Count 212 10^3/uL (130-400); Red Blood Cell Count 3.25 10^6/uL (4.70-6.10); Red Cell Dist. Width 13.1 % (11.5-14.5); White Blood Cell Count 5.9 10^3/uL (4.8-10.8)
[2023-11-28 08:17] LABS: Blood Urea Nitrogen 13 mg/dl (9-20); Calcium 7.7 mg/dl (8.4-10.2); Carbon Dioxide 25 mmol/L (22-30); Chloride 100 mmol/L (98-107); Estimated Creatinine Clearance 66 ml/min; Glucose 92 mg/dl (70-99); Potassium 3.6 mmol/L (3.5-5.1); Sodium 133 mmol/L (135-145); eGFR > 60.00
[2023-11-28] MEDS: SANTYL OINTMENT 1 APPLIC TOPICAL (09:14)
[2023-11-28] MEDS: THERAGRAN 1 TABLET PO (09:14)
[2023-11-28] MEDS: SINEMET 25-100 1 TABLET PO ×4 (09:14→21:03)
[2023-11-28] MEDS: TRENTAL 400 MG PO ×3 (09:14→21:03)
[2023-11-28] MEDS: HYDROPHOR 1 APPLIC TOPICAL (09:14)
[2023-11-28] MEDS: DAKIN'S SOLUTION 0.125% 1/4 STRENGTH 473 ML TOPICAL (09:15)
[2023-11-28] MEDS: DESENEX/MITRAZOL/ZEASORB 1 APPLIC TOPICAL ×2 (09:15→20:57)
--- NOTE | 2023-11-28 09:21 | W.PN.HOSP.TC ---
Today's Communication/Plan
-
Possible dc in am, will need SNF
Assessment / Plan
Assessment / Plan
Physical Exam
General: Other (87y M in no acute distress.) Comfortable, sitting in chair
HEENT: Moist mucous membranes
Respiratory: CTAB
Cardiac: S1/S2 and Regular Rhythm
GI: Soft, Non Tender, Non Distended and Normal Bowel Sounds
Musculoskeletal: Other (Chronic stasis skin changes. LEs with new dressings in place)
Neuro: AAO to self and surroundings, he followed commands
Psych: calm
ASSESSMENT & PLAN
#LLE cellulitis
Chronic Venous Stasis
Chronic left lower extremity wounds.
Allergy to multiple antibiotics: sulfa, cephalosporin, levofloxacin (tolerated cipro in the past).
History of Pseudomonas
Associate weakness
Multple ABx allergy
- Wound culture growing Proteus
- s/p Zosyn , on Amoxicillin starting 11/26
- Blood cultures no growth
- Wound care and compression. d/w wound care nurse.
- ID consulted, appreciate evaluation and recommendations
#Folliculitis of the back
-Appreciate ID evaluation
-Not a drug rash,c/w skin hygiene
-Can continue Zosyn
# Left > right leg venous ulcers
- Patient has Stage 2 pressure sacral wound
c/w wound care, appreciate help
#Hyponatremia
- Sodium stable in the low 130s
- PO Fluid restriction
#ASCVD / PAD
- Stable.
- Continue ASA.
Parkinson's Disease
- Stable. Continue Sinemet dosing without changes.
-PT/OT
Ulcerative Colitis
- Stable. No current / active symptoms.
- Continue mesalamine.
- s/p prior colectomy.
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
Parkinson's
HTN
Renal dysfunction
Dyslipidemia
PAD s/p left femoral stent
Ulcerative colitis s/p hemicolectomy
Chronic BLE venous stasis wounds
DVT Prophylaxis: LMWH
Code: Full code
Total time spent to see the patient, examine the patient on the floor, review data and lab results, discuss treatment plan with patient, nursing staff around 55 minutes
Anticipated Discharge: Within 24 hours
Subjective/Interval History
-
Date of Service: November 28, 2023
No pain or fevers
Denies chest pain
Objective Data
-
Labs:
Laboratory Results
11/28/23
07:02
WBC 5.9
Hgb 9.2 L
Hct 27.1 L
Plt Count 212
Sodium 133 L
Potassium 3.6
Chloride 100
Carbon Dioxide 25
BUN 13
Creatinine 0.9
Glucose 92
Calcium 7.7 L
Vital Signs:
Vital Signs
Temp Pulse Resp BP Pulse Ox
97.8 F 66 17 115/43 97
11/28/23 07:05 11/28/23 07:05 11/28/23 07:05 11/28/23 07:05 11/28/23 07:05
I&O
11/27/23 11/28/23 11/29/23
06:59 06:59 06:59
Intake Total 820 / 820 720 / 720
Output Total 300 / 300
Balance 520 / 520 720 / 720
[2023-11-28 10:53] VITALS: BP 126/56; PULSE 6925
--- NOTE | 2023-11-28 11:19 | PN.CDI ---
Addendum entered and electronically signed by Wicho Reina MD 11/28/23 12:12:
Localized Infection Only, Without Systemic Illness
Original Note:
CDI
- -
CDI:
Physician Documentation Request
Admit Date: 11/24/23 17:27
Dear Doctor Nuno,
Patient admitted for cellulitis.
Laboratory Tests
11/24/23
13:01
WBC 15.4 H
11/24/23
12:30 11/24/23
14:45 11/24/23
15:46
Resp Rate 22 26 27
Please clarify which of the following most accurately describes the status of the patient's infection:
Sepsis, POA
- Systemic manifestations of infection, with 2 or more SIRS criteria which include:
- Fever >100.4 degrees F or hypothermia < 96.8 degrees F
- Leukocytosis - WBC > 12,000 or leukopenia - WBC < 4,000 or > 10% bands
- Tachycardia > 90 beats per minute
- Tachypnea - RR > 20 breaths per minute or PaCO2 , 32mmHg
Source: Merck Manual 2012
Localized Infection Only, Without Systemic Illness
- indicate the site/source, such as cellulitis, etc.
Other
Use of terms such as suspected, likely, concern for, or probable (associated with a specific diagnosis that is being evaluated, monitored, or treated as if it exists) are acceptable and can be coded in the inpatient setting, when documented at the
time of discharge.
Thank you,
Jenni Goodson RN, BSN
CDI Specialist
Available via [place] text
Please use your independent medical judgment in providing your response.
--- NOTE | 2023-11-28 11:19 | VNURNOTE ---
CM notes reviewed. Verified w/[facility] quality assurance supervisor final Mary Tobin that patient can receive both private duty in addition to resuming [facility] visits 2-3x/week. Met with patient and explained above. He verbalized understanding. Per Hospitalist notes, rec SNF.
[facility] remains available for home care needs if plan is for home.
--- NOTE | 2023-11-28 11:39 | W.PN.ID1 ---
Date of Service
Date of Service: November 28, 2023
Today's Communication
c/w amoxicillin for another 3 days
Assessment / Plan
Chronic Wound with suprainfection
Stated allergies to: cephalosporins (rash), levofloxacin (rash), bactrim (rash)
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
- folliculitis of the back - not a drug rash, bathe patient today if possible
- wound culture in progress - Proteus
- blood cultures x2 were sent, would not typically do these for cellulitis without shock; these are no growth to date
- mrsa screen negative
- c/w amoxicillin for another 3 days
follow clinically
Chief Complaint
-: Other (chronic wounds with suprainfection)
Subjective / Review of Systems
afebrile
bp stable
no overnight events
Vital Signs / Physical Exam
Vital Signs
Vital Signs
Temp Pulse Resp BP Pulse Ox
97.8 F 66 17 115/43 97
11/28/23 07:05 11/28/23 07:05 11/28/23 07:05 11/28/23 07:05 11/28/23 07:05
Physical Exam
Constitutional: No Acute Distress
Cardiovascular: Regular Rate and S1/S2; Negative Murmur or Rub
Pulmonary: Clear and Symmetric; Negative Wheezes or Rales
Gastrointestinal: Soft, Non Tender, Non Distended and Normal Bowel Sounds
Skin: Warm and Dry; Negative Rash or Jaundice
Wound: Other (clean, no odor, no surrounding erythema, eschar is soft and coming up)
Objective Data
Lab Data
Lab Results
11/28/23 07:02
11/28/23 07:02
Estimated Creat Clear 66 ml/min 11/28/23 07:02
Lactic Acid Cancelled 11/24/23 18:30
Total Bilirubin 0.7 mg/dl (0.2-1.3) 11/24/23 13:01
AST 22 U/L (17-59) 11/24/23 13:01
ALT < 10 U/L (0-50) 11/24/23 13:01
Alkaline Phosphatase 103 U/L (38-126) 11/24/23 13:01
Most recent labs reviewed.
Micro Results:
11/24/23 15:35 Blood Culture - Preliminary
Blood/Venous No Growth in 72 hours- Final report to follow
11/24/23 15:35 Blood Culture - Preliminary
Blood/Venous No Growth in 72 hours- Final report to follow
11/24/23 15:35 Wound Culture - Final
Leg - Left Proteus mirabilis
Gram Stain - Final
11/25/23 11:56 MRSA Screen - Final
Nose No Methicillin Resistant Staphylococcus aureus isolated.
11/24/23 13:42 Influenza Types A & B (BOONE) - Final
Nasal Swab Negative for Influenza A & B, NAAT
Negative results must be combined with clinical observations
and patient history.
Nucleic Acid Amplification test (NAAT)performed on the
[employer] platform.
[2023-11-28] MEDS: OCUVITE SOFTGEL 2 CAP PO (13:19)
[2023-11-28 15:05] VITALS: BP 121/59
--- NOTE | 2023-11-28 15:28 | CM ---
CM reviewed chart
Call with [facility]- does not offer private duty services
She referred sposue to Nursing Services
Call with spouse to review planning
PT/OT thang reviewed in depth with SNF recs
Spouse declining SNF- suggested she also hire ELECTRICIAN RESEARCH in addition to private duty nursing
Spouse in agreement- she has a $183K LTC policy she is trying to access for care
Private duty ELECTRICIAN RESEARCH list left bedside along with [facility] brochure [phone]
She will call to make arrangements- [facility]
Interested in hospital bed if appropriate
Discharge Disposition- SNF refusal, [facility], private residential and private duty ELECTRICIAN RESEARCH, possible hospital bed
[2023-11-28] MEDS: LOVENOX 40 MG SC (17:09)
[2023-11-28] MEDS: ASPIR LOW (ENTERIC COATED) 81 MG PO (21:03)
[2023-11-28 23:30] VITALS: BP 123/56
[2023-11-29] MEDS: TYLENOL 650 MG PO ×2 (01:08→23:49)
--- NOTE | 2023-11-29 03:27 | DOWNTIME ---
There was a [employer] Machine Operator Downtime on 11/29/2023 from 0100 to 11/29/2023 at 0300. Downtime documentation of patient's care, including medication administrations, has been reconciled in the electronic record per guidelines. Refer to the
patient's paper chart under the miscellaneous tab to see printed paper medication records and downtime forms.
[2023-11-29] MEDS: AMOXIL 500 MG PO ×3 (05:32→21:03)
[2023-11-29 05:35] VITALS: BMI 22.3
[2023-11-29 07:00] VITALS: BP 135/64
[2023-11-29 07:58] VITALS: BP 135/64
[2023-11-29] MEDS: SINEMET 25-100 1 TABLET PO ×4 (08:21→21:03)
[2023-11-29] MEDS: SANTYL OINTMENT 1 APPLIC TOPICAL (08:21)
[2023-11-29] MEDS: TRENTAL 400 MG PO ×3 (08:21→21:03)
[2023-11-29] MEDS: THERAGRAN 1 TABLET PO (08:22)
[2023-11-29] MEDS: DAKIN'S SOLUTION 0.125% 1/4 STRENGTH 473 ML TOPICAL (08:23)
[2023-11-29] MEDS: DESENEX/MITRAZOL/ZEASORB 1 APPLIC TOPICAL ×2 (08:24→19:49)
[2023-11-29] MEDS: HYDROPHOR 1 APPLIC TOPICAL (08:24)
[2023-11-29 09:00] LABS: % Basophils 0.7 % (0-2); % Immature Granulocytes 0.9 % (0-0.5); % Lymphocytes 20.6 % (20.5-51.1); % Monocytes 10.2 % (1.7-9.3); % Neutrophils 65.6 % (42.2-75.2); Absolute Basophils 0.1 10^3/uL (0-0.2); Absolute Eosinophils 0.1 10^3/uL (0-0.7); Absolute Immature Granulocytes 0.1 10^3/uL (0-0.05); Absolute Lymphocytes 1.4 10^3/uL (1.2-3.4); Absolute Monocytes 0.7 10^3/uL (0.1-0.6); Absolute Neutrophils 4.5 10^3/uL (1.4-6.5); Hematocrit 29.5 % (39.0-52.0); Hemoglobin 9.9 g/dL (13.0-18.0); Mean Corp Hgb Conc. 33.6 g/dL (33.0-37.0); Mean Corpuscular Hgb 28.1 pg (27.0-31.0); Mean Corpuscular Volume 83.8 fL (80.0-94.0); Mean Platelet Volume 8.8 fL (7.4-10.4); Nucleated Red Blood Cells % 0 % (-); Platelet Count 222 10^3/uL (130-400); Red Blood Cell Count 3.52 10^6/uL (4.70-6.10); Red Cell Dist. Width 13.2 % (11.5-14.5); White Blood Cell Count 6.9 10^3/uL (4.8-10.8)
--- NOTE | 2023-11-29 09:21 | W.PN.HOSP.TC ---
Today's Communication/Plan
-
Likely dc in am if discharge set up is complete
Assessment / Plan
Assessment / Plan
Physical Exam
General: Other (87y M in no acute distress.) Comfortable, sitting in chair
HEENT: Moist mucous membranes
Respiratory: CTAB
Cardiac: S1/S2 and Regular Rhythm
GI: Soft, Non Tender, Non Distended and Normal Bowel Sounds
Musculoskeletal: Other (Chronic stasis skin changes. LEs with new dressings in place)
Neuro: AAO to self and surroundings, he followed commands
Psych: calm
ASSESSMENT & PLAN
#LLE cellulitis
Chronic Venous Stasis
Chronic left lower extremity wounds.
Allergy to multiple antibiotics: sulfa, cephalosporin, levofloxacin (tolerated cipro in the past).
History of Pseudomonas
Associate weakness
Multple ABx allergy
- Wound culture growing Proteus
- s/p Zosyn , on Amoxicillin starting 11/26
- Blood cultures no growth
- Wound care and compression. d/w wound care nurse.
- ID consulted, appreciate evaluation and recommendations
#Folliculitis of the back
-Appreciate ID evaluation
-Not a drug rash,c/w skin hygiene
# Left > right leg venous ulcers
- Patient has Stage 2 pressure sacral wound
c/w wound care, appreciate help
#Hyponatremia
- Sodium stable in the low 130s
- PO Fluid restriction
#ASCVD / PAD
- Stable.
- Continue ASA.
Parkinson's Disease
- Stable. Continue Sinemet dosing without changes.
-PT/OT, recommended SNF
Ulcerative Colitis
- Stable. No current / active symptoms.
- Continue mesalamine.
- s/p prior colectomy.
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
Parkinson's
HTN
Renal dysfunction
Dyslipidemia
PAD s/p left femoral stent
Ulcerative colitis s/p hemicolectomy
Chronic BLE venous stasis wounds
DVT Prophylaxis: LMWH
Code: Full code
Total time spent to see the patient, examine the patient on the floor, review data and lab results, discuss treatment plan with patient, , nursing staff around 55 minutes
Anticipated Discharge: 24 - 48 hours
Subjective/Interval History
-
Date of Service: November 29, 2023
No pain issues
No rash
No itching
No chest pain or sob
Objective Data
-
Labs:
Laboratory Results
11/29/23
08:44
WBC 6.9
Hgb 9.9 L
Hct 29.5 L
Plt Count 222
Sodium Pending
Potassium Pending
Chloride Pending
Carbon Dioxide Pending
BUN Pending
Creatinine Pending
Glucose Pending
Calcium Pending
Vital Signs:
Vital Signs
Temp Pulse Resp BP Pulse Ox
97.7 F 61 20 135/64 99
11/29/23 07:00 11/29/23 07:00 11/29/23 07:00 11/29/23 07:00 11/29/23 07:00
I&O
11/28/23 11/29/23 11/30/23
06:59 06:59 06:59
Intake Total 720 / 720 1140 / 1140
Output Total 700 / 700
Balance 720 / 720 440 / 440
--- NOTE | 2023-11-29 10:16 | CM ---
Chart reviewed and physical therapy is recommending skilled, patient's spouse [facility] and private duty nursing from [facility]. Patents spouse is requesting a hospital bed, [facility] liaison is aware. Patient and spouse
have declined skilled placement.
Plan; Home with [facility] when stable.
[2023-11-29 10:32] LABS: Blood Urea Nitrogen 11 mg/dl (9-20); Calcium 8.1 mg/dl (8.4-10.2); Carbon Dioxide 27 mmol/L (22-30); Chloride 98 mmol/L (98-107); Estimated Creatinine Clearance 63 ml/min; Glucose 92 mg/dl (70-99); Sodium 132 mmol/L (135-145); eGFR > 60.00
--- NOTE | 2023-11-29 10:34 | W.PN.ID1 ---
Date of Service
Date of Service: November 29, 2023
Today's Communication
- c/w amoxicillin for another 2 days
Assessment / Plan
Chronic Wound with suprainfection
Stated allergies to: cephalosporins (rash), levofloxacin (rash), bactrim (rash)
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
- wound culture- Proteus
- blood cultures x2 were sent, would not typically do these for cellulitis without shock; these are no growth to date
- mrsa screen negative
- c/w amoxicillin for another 2 days
follow up with wound care center
Chief Complaint
-: Other (chronic wounds with suprainfection)
Subjective / Review of Systems
afebrile
no events overnight
Vital Signs / Physical Exam
Vital Signs
Vital Signs
Temp Pulse Resp BP Pulse Ox
97.7 F 61 20 135/64 99
11/29/23 07:00 11/29/23 07:00 11/29/23 07:00 11/29/23 07:00 11/29/23 07:00
Physical Exam
Constitutional: No Acute Distress
Cardiovascular: Regular Rate and S1/S2; Negative Murmur or Rub
Pulmonary: Clear and Symmetric; Negative Wheezes or Rales
Gastrointestinal: Soft, Non Tender, Non Distended and Normal Bowel Sounds
Skin: Warm and Dry; Negative Rash or Jaundice
Wound: Other (dressing take down deferred)
Objective Data
Lab Data
Lab Results
11/29/23 08:44
11/29/23 08:44
Estimated Creat Clear 63 ml/min 11/29/23 08:44
Lactic Acid Cancelled 11/24/23 18:30
Total Bilirubin 0.7 mg/dl (0.2-1.3) 11/24/23 13:01
AST 22 U/L (17-59) 11/24/23 13:01
ALT < 10 U/L (0-50) 11/24/23 13:01
Alkaline Phosphatase 103 U/L (38-126) 11/24/23 13:01
Most recent labs reviewed.
Micro Results:
11/24/23 15:35 Blood Culture - Preliminary
Blood/Venous No Growth in 4 days- Final report to follow
11/24/23 15:35 Blood Culture - Preliminary
Blood/Venous No Growth in 4 days- Final report to follow
11/24/23 15:35 Wound Culture - Final
Leg - Left Proteus mirabilis
Gram Stain - Final
11/25/23 11:56 MRSA Screen - Final
Nose No Methicillin Resistant Staphylococcus aureus isolated.
11/24/23 13:42 Influenza Types A & B (BOONE) - Final
Nasal Swab Negative for Influenza A & B, NAAT
Negative results must be combined with clinical observations
and patient history.
Nucleic Acid Amplification test (NAAT)performed on the
[employer] platform.
--- NOTE | 2023-11-29 10:45 | PN.CDI ---
Addendum entered and electronically signed by Wicho Reina MD 11/29/23 10:55:
Bilateral heels with stage 1 pressure ulcer
Original Note:
CDI
- -
CDI:
Physician Documentation Request
Admit Date: 11/24/23 17:27
Dear Doctor Nuno,
Patient admitted for cellulitis.
11/26 Wound Care Note: 'Heels noted to have stage 1 at admission and were off-loaded on pillows and covered with sacral foam.'
Physician documentation of the type and location of wounds is required for compliant documentation. Based on the above clinical findings and your assessment, please provide the following in your progress note:
1. Location of the ulcer/wound, including laterality.
2. Type (etiology) of ulcer/wound:
- Diabetic ulcer
- Arterial (ischemic) ulcer
- Traumatic wound
- Venous stasis ulcer
- Pressure (decubitus) ulcer
- Non-healing surgical wound
- Other
- Unable to determine
3. For a non-pressure ulcer, please indicate the depth/severity:
- Limited to the breakdown of skin
- With fat layer exposed
- With necrosis of muscle
- With necrosis of bone
- Other
- Unable to determine
4. If a pressure ulcer, please also include the stage* of the ulcer:
- Stage 1 - Skin intact, non-blanchable redness
- Stage 2 - Partial thickness loss of dermis, includes intact or open blister
- Stage 3 - Full thickness tissue not including bone, tendon or muscle
- Stage 4 - Full thickness tissue loss, including exposed bone, tendon or muscle
- Unstageable - Full thickness loss in which the base of the ulcer is covered by slough (yellow, vanegas, arita, green or brown) and/or eschar (vanegas, brown or black) in the wound bed.
- Unable to determine
Use of terms such as suspected, likely, concern for, or probable (associated with a specific diagnosis that is being evaluated, monitored, or treated as if it exists) are acceptable and can be coded in the inpatient setting, when documented at the
time of discharge.
Thank you,
Jenni Goodson RN, BSN
CDI Specialist
Available via [place] text
Please use your independent medical judgment in providing your response.
*Source: National Pressure Ulcer Advisory Panel (NPUAP)
[2023-11-29 13:06] LABS: Vitamin D, 25-OH*** < 12.8 ng/mL (30-80)
[2023-11-29] MEDS: OCUVITE SOFTGEL 2 CAP PO (13:32)
[2023-11-29 14:51] VITALS: BP 133/64
--- NOTE | 2023-11-29 15:06 | VNURNOTE ---
Confirmed with Hospitalist Dr Reina that spouse agreed to SNF. CM updated. [facility] remains available if plans change.
[2023-11-29] MEDS: LOVENOX 40 MG SC (17:05)
[2023-11-29] MEDS: ASPIR LOW (ENTERIC COATED) 81 MG PO (21:03)
[2023-11-29 23:23] VITALS: BP 134/54
[2023-11-30] MEDS: AMOXIL 500 MG PO ×3 (05:11→21:21)
[2023-11-30 06:00] VITALS: BMI 22.4
[2023-11-30 07:00] VITALS: BP 129/49
[2023-11-30 08:19] LABS: % Basophils 0.7 % (0-2); % Eosinophils 1.5 % (0-6); % Immature Granulocytes 1.2 % (0-0.5); % Lymphocytes 21.3 % (20.5-51.1); % Monocytes 10.1 % (1.7-9.3); % Neutrophils 65.2 % (42.2-75.2); Absolute Basophils 0.1 10^3/uL (0-0.2); Absolute Eosinophils 0.1 10^3/uL (0-0.7); Absolute Immature Granulocytes 0.1 10^3/uL (0-0.05); Absolute Lymphocytes 1.6 10^3/uL (1.2-3.4); Absolute Monocytes 0.8 10^3/uL (0.1-0.6); Absolute Neutrophils 4.9 10^3/uL (1.4-6.5); Hematocrit 29.3 % (39.0-52.0); Hemoglobin 9.8 g/dL (13.0-18.0); Mean Corp Hgb Conc. 33.4 g/dL (33.0-37.0); Mean Corpuscular Hgb 27.9 pg (27.0-31.0); Mean Corpuscular Volume 83.5 fL (80.0-94.0); Mean Platelet Volume 8.5 fL (7.4-10.4); Nucleated Red Blood Cells % 0 % (-); Platelet Count 234 10^3/uL (130-400); Red Blood Cell Count 3.51 10^6/uL (4.70-6.10); Red Cell Dist. Width 13.2 % (11.5-14.5); White Blood Cell Count 7.5 10^3/uL (4.8-10.8)
[2023-11-30 08:53] LABS: Blood Urea Nitrogen 9 mg/dl (9-20); Calcium 8.1 mg/dl (8.4-10.2); Carbon Dioxide 26 mmol/L (22-30); Chloride 99 mmol/L (98-107); Estimated Creatinine Clearance 64 ml/min; Glucose 96 mg/dl (70-99); Sodium 134 mmol/L (135-145); eGFR > 60.00
--- NOTE | 2023-11-30 09:01 | W.PN.HOSP.TC ---
Today's Communication/Plan
-
dc planning
Assessment / Plan
Assessment / Plan
Physical Exam
General: Other (87y M in no acute distress.) Comfortable, sitting in chair
HEENT: Moist mucous membranes
Respiratory: CTAB
Cardiac: S1/S2 and Regular Rhythm
GI: Soft, Non Tender, Non Distended and Normal Bowel Sounds
Musculoskeletal: Other (Chronic stasis skin changes. LEs with new dressings in place)
Neuro: AAO to self and surroundings, he followed commands
Psych: calm
ASSESSMENT & PLAN
#LLE cellulitis
Chronic Venous Stasis
Chronic left lower extremity wounds.
Allergy to multiple antibiotics: sulfa, cephalosporin, levofloxacin (tolerated cipro in the past).
History of Pseudomonas
Associate weakness
Multple ABx allergy
- Wound culture growing Proteus
- s/p Zosyn , on Amoxicillin starting 11/26
- Blood cultures no growth
- Wound care and compression. d/w wound care nurse.
- ID consulted, appreciate evaluation and recommendations
#Folliculitis of the back
-Appreciate ID evaluation
-Not a drug rash,c/w skin hygiene
# Left > right leg venous ulcers
- Patient has Stage 2 pressure sacral wound
c/w wound care, appreciate help
#Hyponatremia
- Sodium stable in the low 130s
- PO Fluid restriction
#ASCVD / PAD
- Stable.
- Continue ASA.
Parkinson's Disease
- Stable. Continue Sinemet dosing without changes.
-PT/OT, recommended SNF
Ulcerative Colitis
- Stable. No current / active symptoms.
- Continue mesalamine.
- s/p prior colectomy.
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
Parkinson's
HTN
Renal dysfunction
Dyslipidemia
PAD s/p left femoral stent
Ulcerative colitis s/p hemicolectomy
Chronic BLE venous stasis wounds
DVT Prophylaxis: LMWH
Code: Full code
Total time spent to see the patient, examine the patient on the floor, review data and lab results, discuss treatment plan with patient, , nursing staff around 55 minutes
Anticipated Discharge: Within 24 hours
Subjective/Interval History
-
Date of Service: November 30, 2023
No chest pain
No sob
No fevers
Objective Data
-
Labs:
Laboratory Results
11/30/23
07:51
WBC 7.5
Hgb 9.8 L
Hct 29.3 L
Plt Count 234
Sodium 134 L
Potassium 4.0
Chloride 99
Carbon Dioxide 26
BUN 9
Creatinine 0.9
Glucose 96
Calcium 8.1 L
Vital Signs:
Vital Signs
Temp Pulse Resp BP Pulse Ox
97.6 F 60 16 129/49 100
11/30/23 07:00 11/30/23 07:00 11/30/23 07:00 11/30/23 07:00 11/30/23 07:00
I&O
11/29/23 11/30/23 12/01/23
06:59 06:59 06:59
Intake Total 1140 / 1140 960 / 960
Output Total 700 / 700
Balance 440 / 440 960 / 960
[2023-11-30] MEDS: THERAGRAN 1 TABLET PO (09:03)
[2023-11-30] MEDS: SANTYL OINTMENT 1 APPLIC TOPICAL (09:03)
[2023-11-30] MEDS: SINEMET 25-100 1 TABLET PO ×4 (09:03→21:21)
[2023-11-30] MEDS: TRENTAL 400 MG PO ×3 (09:03→21:21)
[2023-11-30] MEDS: DAKIN'S SOLUTION 0.125% 1/4 STRENGTH 473 ML TOPICAL (09:04)
[2023-11-30] MEDS: DESENEX/MITRAZOL/ZEASORB 1 APPLIC TOPICAL ×2 (09:04→19:25)
[2023-11-30] MEDS: HYDROPHOR 1 APPLIC TOPICAL (09:05)
[2023-11-30] MEDS: TYLENOL 650 MG PO ×2 (12:23→19:24)
[2023-11-30] MEDS: OCUVITE SOFTGEL 2 CAP PO (12:23)
--- NOTE | 2023-11-30 13:44 | CM ---
Plan is for skilled placement at [facility], per admissions at [facility] they will have a bed available for patient tomorrow, patient will need COVID testing completed.
Plan; Skilled placement at [facility] 12/01/23, needs COVID testing
[2023-11-30 15:00] VITALS: BP 112/49
--- NOTE | 2023-11-30 16:46 | W.PN.ID1 ---
Date of Service
Date of Service: November 30, 2023
Today's Communication
c/w amoxicillin
Assessment / Plan
Chronic Wound with suprainfection
Stated allergies to: cephalosporins (rash), levofloxacin (rash), bactrim (rash)
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
- wound culture- Proteus
- blood cultures x2 were sent, would not typically do these for cellulitis without shock; these are no growth to date
- mrsa screen negative
- c/w amoxicillin for another day
follow up with wound care center
Chief Complaint
-: Other (chronic wounds with suprainfection)
Subjective / Review of Systems
afebrile
no further pain from the wound
no complaints
Vital Signs / Physical Exam
Vital Signs
Vital Signs
Temp Pulse Resp BP Pulse Ox
97.8 F 68 20 112/49 98
11/30/23 15:00 11/30/23 15:00 11/30/23 15:00 11/30/23 15:00 11/30/23 15:00
Physical Exam
Constitutional: No Acute Distress
Cardiovascular: Regular Rate and S1/S2; Negative Murmur or Rub
Pulmonary: Clear and Symmetric; Negative Wheezes or Rales
Gastrointestinal: Soft, Non Tender, Non Distended and Normal Bowel Sounds
Skin: Warm and Dry; Negative Rash or Jaundice
Wound: Other (deferred dressing take down)
Objective Data
Lab Data
Lab Results
11/30/23 07:51
11/30/23 07:51
Estimated Creat Clear 64 ml/min 11/30/23 07:51
Lactic Acid Cancelled 11/24/23 18:30
Total Bilirubin 0.7 mg/dl (0.2-1.3) 11/24/23 13:01
AST 22 U/L (17-59) 11/24/23 13:01
ALT < 10 U/L (0-50) 11/24/23 13:01
Alkaline Phosphatase 103 U/L (38-126) 11/24/23 13:01
Most recent labs reviewed.
Micro Results:
11/24/23 15:35 Blood Culture - Final
Blood/Venous No Growth - Final Report
11/24/23 15:35 Blood Culture - Final
Blood/Venous No Growth - Final Report
11/24/23 15:35 Wound Culture - Final
Leg - Left Proteus mirabilis
Gram Stain - Final
11/25/23 11:56 MRSA Screen - Final
Nose No Methicillin Resistant Staphylococcus aureus isolated.
11/24/23 13:42 Influenza Types A & B (BOONE) - Final
Nasal Swab Negative for Influenza A & B, NAAT
Negative results must be combined with clinical observations
and patient history.
Nucleic Acid Amplification test (NAAT)performed on the
[employer] platform.
[2023-11-30] MEDS: LOVENOX 40 MG SC (17:47)
[2023-11-30] MEDS: ASPIR LOW (ENTERIC COATED) 81 MG PO (21:21)
[2023-11-30 23:12] VITALS: BP 123/48
[2023-12-01 06:00] VITALS: BMI 22.7
[2023-12-01] MEDS: AMOXIL 500 MG PO ×2 (06:03→13:12)
[2023-12-01 07:15] LABS: % Basophils 0.4 % (0-2); % Immature Granulocytes 0.8 % (0-0.5); % Lymphocytes 27.8 % (20.5-51.1); % Monocytes 11.2 % (1.7-9.3); % Neutrophils 57.8 % (42.2-75.2); Absolute Eosinophils 0.1 10^3/uL (0-0.7); Absolute Immature Granulocytes 0.1 10^3/uL (0-0.05); Absolute Monocytes 0.8 10^3/uL (0.1-0.6); Absolute Neutrophils 4.1 10^3/uL (1.4-6.5); Hematocrit 26.9 % (39.0-52.0); Hemoglobin 9.1 g/dL (13.0-18.0); Mean Corp Hgb Conc. 33.8 g/dL (33.0-37.0); Mean Corpuscular Hgb 28.3 pg (27.0-31.0); Mean Corpuscular Volume 83.5 fL (80.0-94.0); Mean Platelet Volume 9.1 fL (7.4-10.4); Nucleated Red Blood Cells % 0 % (-); Platelet Count 240 10^3/uL (130-400); Red Blood Cell Count 3.22 10^6/uL (4.70-6.10); Red Cell Dist. Width 13.2 % (11.5-14.5); White Blood Cell Count 7.1 10^3/uL (4.8-10.8)
[2023-12-01 07:30] VITALS: BP 142/64
[2023-12-01] MEDS: SINEMET 25-100 1 TABLET PO ×2 (08:05→12:16)
[2023-12-01] MEDS: THERAGRAN 1 TABLET PO (08:05)
[2023-12-01] MEDS: TRENTAL 400 MG PO (08:05)
[2023-12-01] MEDS: SANTYL OINTMENT 1 APPLIC TOPICAL (08:06)
[2023-12-01] MEDS: DAKIN'S SOLUTION 0.125% 1/4 STRENGTH 473 ML TOPICAL (08:06)
[2023-12-01] MEDS: HYDROPHOR 1 APPLIC TOPICAL (08:07)
[2023-12-01 08:08] LABS: Blood Urea Nitrogen 9 mg/dl (9-20); Carbon Dioxide 24 mmol/L (22-30); Chloride 100 mmol/L (98-107); Estimated Creatinine Clearance 64 ml/min; Glucose 91 mg/dl (70-99); Sodium 133 mmol/L (135-145); eGFR > 60.00
--- NOTE | 2023-12-01 09:52 | W.PN.HOSP.TC ---
Today's Communication/Plan
-
dc
Assessment / Plan
Assessment / Plan
Physical Exam
General: Other (87y M in no acute distress.) Comfortable, sitting in chair
HEENT: Moist mucous membranes
Respiratory: CTAB
Cardiac: S1/S2 and Regular Rhythm
GI: Soft, Non Tender, Non Distended and Normal Bowel Sounds
Musculoskeletal: Other (Chronic stasis skin changes. LEs with new dressings in place)
Neuro: AAO to self and surroundings, he followed commands
Psych: calm
ASSESSMENT & PLAN
#LLE cellulitis
Chronic Venous Stasis
Chronic left lower extremity wounds.
Allergy to multiple antibiotics: sulfa, cephalosporin, levofloxacin (tolerated cipro in the past).
History of Pseudomonas
Associate weakness
Multple ABx allergy
- Wound culture growing Proteus
- s/p Zosyn , on Amoxicillin starting 11/26
- Blood cultures no growth
- Wound care and compression. d/w wound care nurse.
- ID consulted, appreciate evaluation and recommendations
#Folliculitis of the back
-Appreciate ID evaluation
-Not a drug rash,c/w skin hygiene
# Left > right leg venous ulcers
- Patient has Stage 2 pressure sacral wound
c/w wound care, appreciate help
#Hyponatremia
- Sodium stable in the low 130s
- PO Fluid restriction
#ASCVD / PAD
- Stable.
- Continue ASA.
Parkinson's Disease
- Stable. Continue Sinemet dosing without changes.
-PT/OT, recommended SNF
Ulcerative Colitis
- Stable. No current / active symptoms.
- Continue mesalamine.
- s/p prior colectomy.
Conditions [employer]
Parkinson's
HTN
Renal dysfunction
Dyslipidemia
PAD s/p left femoral stent
Ulcerative colitis s/p hemicolectomy
Chronic BLE venous stasis wounds
DVT Prophylaxis: LMWH
Code: Full code
Total discharge time spent to see the patient, examine the patient on the floor, review data and lab results, discuss discharge plan with patient, , nursing staff around 65 minutes
Anticipated Discharge: Today
Subjective/Interval History
-
Date of Service: December 01, 2023
No chest pain
No sob
Objective Data
-
Labs:
Laboratory Results
12/01/23
06:28
WBC 7.1
Hgb 9.1 L
Hct 26.9 L
Plt Count 240
Sodium 133 L
Potassium 4.0
Chloride 100
Carbon Dioxide 24
BUN 9
Creatinine 0.9
Glucose 91
Calcium 8.0 L
Vital Signs:
Vital Signs
Temp Pulse Resp BP Pulse Ox
98.6 F 75 17 142/64 98
12/01/23 07:30 12/01/23 07:30 12/01/23 07:30 12/01/23 07:30 12/01/23 07:30
I&O
11/30/23 12/01/23 12/02/23
06:59 06:59 06:59
Intake Total 960 / 960
Balance 960 / 960
[2023-12-01] MEDS: DESENEX/MITRAZOL/ZEASORB 1 APPLIC TOPICAL (10:23)
[2023-12-01 11:10] LABS: COVID-19 Antigen Negative (Negative)
--- NOTE | 2023-12-01 11:43 | CM ---
manager database reviewed patient's chart and met with patient and spoke with spouse by phone and patient has been accepted and approved for [facility] today, patient has a 2pm vegetable picker by ambulance, COVID test completed.
Plan; Skilled placement at [facility]
Report [phone]
[2023-12-01] MEDS: OCUVITE SOFTGEL 2 CAP PO (12:16)
== END 2023-12-01 14:05 | DRG 603 ==
LOC: 4 WEST ACU 17:27
PROVIDERS: Hospitalist; Nurse Practitioner; ADMITTING PHYSICIAN Internal Medicine; ATTENDING PHYSICIAN Internal Medicine; CONSULT PHYSICIAN Student in an Organized Health Care Education/Training Program; EMERGENCY PHYSICIAN Emergency Medicine; FAMILY PHYSICIAN Internal Medicine
DX: L03.116 Cellulitis of left lower limb (principal); E87.1 Hypo-osmolality and hyponatremia; K51.90 Ulcerative colitis, unspecified, without complications; Z87.891 Personal history of nicotine dependence; I87.8 Other specified disorders of veins; I25.10 Atherosclerotic heart disease of native coronary artery without angina pectoris; G20.A1 Parkinson's disease without dyskinesia, without mention of fluctuations; I12.9 Hypertensive chronic kidney disease with stage 1 through stage 4 chronic kidney disease, or unspecified chronic kidney disease; N18.9 Chronic kidney disease, unspecified; L89.621 Pressure ulcer of left heel, stage 1; L89.611 Pressure ulcer of right heel, stage 1; L89.152 Pressure ulcer of sacral region, stage 2; Z11.52 Encounter for screening for COVID-19
CPT/HCPCS: 80048; 80053; 81003; 81015; 82040; 82306; 83605; 83735; 85025; 85027; 87040; 87070; 87077; 87186; 87205; 87502; 87811; 93005; 96361; 96365; 97116; 97163; 97167; 97535; 99285

== ENCOUNTER → 2024-03-01 13:49 | Outpatient (REF) | payer MEDICARE, BC, SELFPAY | LOC: REG 13:49 | PROVIDERS: ATTENDING PHYSICIAN Internal Medicine Gastroenterology; FAMILY PHYSICIAN Internal Medicine | DX: K51.00 Ulcerative (chronic) pancolitis without complications (principal); R19.7 Diarrhea, unspecified | CPT/HCPCS: 83993; 87045; 87046; 87077; 87324; 87427; 87449 ==

== ENCOUNTER → 2024-04-10 13:13 | Outpatient (REF) | payer MEDICARE, BC, SELFPAY ==
[2024-04-10 16:18] LABS: % Basophils 0.7 % (0-2); % Eosinophils 0.9 % (0-6); % Immature Granulocytes 0.5 % (0-0.5); % Lymphocytes 12.3 % (20.5-51.1); % Monocytes 4.3 % (1.7-9.3); % Neutrophils 81.3 % (42.2-75.2); Absolute Basophils 0.1 10^3/uL (0-0.2); Absolute Eosinophils 0.1 10^3/uL (0-0.7); Absolute Immature Granulocytes 0.1 10^3/uL (0-0.05); Absolute Lymphocytes 1.3 10^3/uL (1.2-3.4); Absolute Monocytes 0.5 10^3/uL (0.1-0.6); Absolute Neutrophils 8.7 10^3/uL (1.4-6.5); Hematocrit 39.4 % (39.0-52.0); Hemoglobin 13.1 g/dL (13.0-18.0); Mean Corp Hgb Conc. 33.2 g/dL (33.0-37.0); Mean Corpuscular Hgb 30.5 pg (27.0-31.0); Mean Corpuscular Volume 91.6 fL (80.0-94.0); Mean Platelet Volume 9.2 fL (7.4-10.4); Nucleated Red Blood Cells % 0 % (-); Platelet Count 298 10^3/uL (130-400); Red Cell Dist. Width 12.7 % (11.5-14.5); White Blood Cell Count 10.7 10^3/uL (4.8-10.8)
[2024-04-10 16:24] LABS: Erythrocyte Sed Rate 29 mm/hour (0-20)
[2024-04-10 16:53] LABS: Iron 74 ug/dl (49-181)
[2024-04-10 17:05] LABS: Percent Saturation 28 % (20-50); Total Iron Binding Capacity 261 ug/dl (261-462)
[2024-04-10 17:30] LABS: Ferritin 47.5 ng/ml (17.9-464.0)
== END ==
LOC: HWLAB 13:13
PROVIDERS: ATTENDING PHYSICIAN Internal Medicine Gastroenterology; FAMILY PHYSICIAN Internal Medicine
DX: K51.00 Ulcerative (chronic) pancolitis without complications (principal)
CPT/HCPCS: 36415; 82728; 83540; 83550; 85025; 85652; 86140

== ENCOUNTER 2024-04-11 06:33 | Day surgery (SDC) | payer MEDICARE, BC, SELFPAY ==
[2024-04-13 10:12] LABS: HSV 1 Subtype by PCR Not Detected; HSV 2 Subtype by PCR Not Detected; Herpes Simplex Source Tissue
== END 2024-04-11 11:31 | disposition home or self-care (01) ==
LOC: GI 06:33
PROVIDERS: ATTENDING PHYSICIAN Internal Medicine Gastroenterology
DX: K63.3 Ulcer of intestine (principal); R19.7 Diarrhea, unspecified; Z87.19 Personal history of other diseases of the digestive system
CPT/HCPCS: 45331; 88305; 87254; 87529

== ENCOUNTER → 2024-06-28 09:36 | Outpatient (REF) | payer MEDICARE, BC, SELFPAY | LOC: RST 09:36 | PROVIDERS: ATTENDING PHYSICIAN Internal Medicine Gastroenterology; FAMILY PHYSICIAN Internal Medicine | DX: R13.10 Dysphagia, unspecified (principal); R13.14 Dysphagia, pharyngoesophageal phase; R13.19 Other dysphagia | CPT/HCPCS: 74230; 92611 ==

== ENCOUNTER → 2024-08-30 10:29 | Outpatient (REF) | payer MEDICARE, BC, SELFPAY ==
[2024-08-30 11:32] LABS: Hemoglobin 12.2 g/dL (13.0-18.0)
== END ==
LOC: REG 10:29
PROVIDERS: ATTENDING PHYSICIAN Internal Medicine Gastroenterology; FAMILY PHYSICIAN Internal Medicine
DX: D64.9 Anemia, unspecified (principal)
CPT/HCPCS: 36415; 85018

== ENCOUNTER → 2025-01-31 11:23 | Outpatient (REF) | payer MEDICARE, BC, SELFPAY | LOC: REG 11:23 | PROVIDERS: ATTENDING PHYSICIAN Internal Medicine Gastroenterology | DX: K51.219 Ulcerative (chronic) proctitis with unspecified complications (principal) | CPT/HCPCS: 87045; 87046; 87077; 87324; 87427; 87449; 89055 ==